=== PATIENT | male | born 1935 | race Caucasian/White ===

== ENCOUNTER 2017-08-07 05:54 | Day surgery (SDC) | payer MEDICARE, OTHER ==
[2017-08-07] MEDS ORDERED: PROPARACAINE 0.5% OPHTH DROPS 15 ML ONE ×2 (06:32→07:20)
[2017-08-07] MEDS ORDERED: CYCLOPENTOLATE 1% OPHTH DROPS 2 ML ONE (06:33)
[2017-08-07] MEDS ORDERED: KETOROLAC 0.45% OPHTH DROPS ONE (06:33)
[2017-08-07] MEDS ORDERED: PHENYLEPHRINE 2.5% OPHTH 2 ML DROPS ONE (06:33)
[2017-08-07] MEDS ORDERED: KETOROLAC 0.45% OPHTH DROPS LEFTEYE ONE (06:50)
[2017-08-07] MEDS ORDERED: PHENYLEPHRINE 2.5% OPHTH 2 ML DROPS LEFTEYE ONE (06:50)
[2017-08-07] MEDS ORDERED: PROPARACAINE 0.5% OPHTH DROPS 15 ML LEFTEYE ONE ×2 (06:50→07:36)
[2017-08-07] MEDS ORDERED: CYCLOPENTOLATE 1% OPHTH DROPS 2 ML LEFTEYE ONE (06:50)
[2017-08-07] MEDS ORDERED: LACTATED RINGERS 500 ML IV ONE (07:00)
[2017-08-07] MEDS ORDERED: BRIMONIDINE 0.1% OPHTH DROPS 5 ML ONE (07:19)
[2017-08-07] MEDS ORDERED: TIMOLOL 0.5% OPHTH DROPS ONE (07:20)
[2017-08-07] MEDS ORDERED: BRIMONIDINE 0.2% OPHTH DROPS 5 ML ONE (07:24)
[2017-08-07] MEDS ORDERED: EPINEPHrine 1 MG/ML AMP IVP ONE (07:34)
[2017-08-07] MEDS ORDERED: BRIMONIDINE 0.2% OPHTH DROPS 5 ML OPTH ONE (07:34)
[2017-08-07] MEDS ORDERED: CHONDR SULF/HYALURONATE SYRINGE IO ONE (07:35)
[2017-08-07] MEDS ORDERED: TIMOLOL 0.5% OPHTH DROPS OPTH ONE (07:35)
[2017-08-07] MEDS ORDERED: TRIAMCIN/MOXIFLOX/VANCO 1 ML VIAL IO ONE ×2 (07:36)
[2017-08-07] MEDS ORDERED: BSS/LIDOCAINE/EPINEPHRINE 1 ML SYRINGE IO ONE ×2 (07:36)
[2017-08-07] MEDS ORDERED: MIDAZOLAM 2 MG/2 ML VIAL IVP ONE (07:41)
[2017-08-07 07:58] VITALS: BP 159/73
--- NOTE | 2017-08-07 11:01 | OPERATIVE REPORT ---
DATE OF SERVICE: 08/07/2017 Physician: Reggie Handy MD PREOPERATIVE DIAGNOSIS: Visually significant cataract, left eye. Cataract surgery was performed on the right eye in 08/15/2011. POSTOPERATIVE DIAGNOSIS: Visually significant cataract, left eye. Cataract surgery was performed on the right eye in 08/15/2011. PROCEDURE: Phacoemulsification with posterior chamber intraocular lens implant , left eye. SURGEON: Reggie Handy MD ANESTHESIA: Monitored anesthesia care. COMPLICATIONS: None. OPERATIVE INDICATIONS: This is an 82-year-old man with progressive vision loss in the left eye due to 2+ nuclear sclerotic, 3+ cortical, and vacuolar cataract. Best corrected visual acuity was 20/30 with glare to 20/70 in the left eye. INDICATIONS FOR SURGERY: Overall decrease in vision, difficulty driving in low light or at night, difficulty driving at night because of headlights from other vehicles, and difficulty with glare or bright lights in any situation. He was consented at length concerning the risks and benefits of cataract surgery , after which he expressed desire to proceed with surgery. OPERATIVE PROCEDURE: The patient was taken to OR #3 and placed under monitored anesthesia care. A surgical timeout was conducted confirming correct patient, correct procedure, and correct surgical site. He was given topical anesthesia and prepped and draped in the usual sterile fashion. The eye was entered at the 6 and 3 o'clock positions. Intracameral Shugarcane was injected into the anterior chamber, followed by Viscoat. A continuous-tear curvilinear capsulorrhexis was performed. The nucleus was hydrodissected and phacoemulsified. The cortex was evacuated using automated infusion and aspiration (I&A). Provisc was injected in the capsular bag and a 23.0 diopter intraocular lens was inserted into the bag. Approximately 0.7 mL of a mixture of triamcinolone, moxifloxacin, vancomycin was injected subconjunctivally in the superior quadrant for infection and inflammation prophylaxis. I&A was used to evacuate the viscoelastic materials. The eye was inflated to physiologic pressure using balanced salt solution and found to be watertight. The patient was taken from the operating room in good condition and given postoperative instructions. TD: 08/07/2017 09:38 [facility]
== END 2017-08-07 05:55 | disposition home or self-care (01) ==
LOC: SDS 05:54
PROVIDERS: ATTEND Ophthalmology
PROC: 08RK3JZ Replacement of Left Lens with Synthetic Substitute, Percutaneous Approach (ICD-10-PCS; principal; 2017-08-07 07:30)
DX: H25.812 Combined forms of age-related cataract, left eye (principal); I10 Essential (primary) hypertension; I25.10 Atherosclerotic heart disease of native coronary artery without angina pectoris; Z95.1 Presence of aortocoronary bypass graft; Z79.82 Long term (current) use of aspirin; Z72.0 Tobacco use
CPT/HCPCS: 66984; A9270; J3490; V2632

== ENCOUNTER 2017-08-11 11:02 | Outpatient (CLI) | payer MEDICARE, OTHER | END 2017-08-11 11:03 | disposition home or self-care (01) | LOC: DI 11:02 | PROVIDERS: ATTEND Family Medicine | DX: I48.91 Unspecified atrial fibrillation (principal); I34.0 Nonrheumatic mitral (valve) insufficiency; I51.7 Cardiomegaly | CPT/HCPCS: 93306 ==

== ENCOUNTER 2018-03-05 10:28 | Outpatient (CLI) | payer MEDICARE, OTHER ==
[2018-03-05 13:18] LABS: BASOPHILS # (AUTO) 0.1 10^3/uL (0.0-0.1); BASOPHILS % (AUTO) 0.8 %; EOSINOPHILS # (AUTO) 0.3 10^3/uL (0.0-0.7); HGB - HEMOGLOBIN 13.5 g/dL (14.0-18.0); LYMPHOCYTES # (AUTO) 1.3 10^3/uL (1.5-3.5); LYMPHOCYTES % (AUTO) 20.2 %; MEAN CORPUSCULAR HEMOGLOBIN 35.6 pg (27.0-31.0); MEAN CORPUSCULAR HGB CONC 33.7 g/dL (32.0-36.0); MEAN CORPUSCULAR VOLUME 105.6 fL (80.0-94.0); MEAN PLATELET VOLUME 11.3 fL (7.4-11.4); MONOCYTES # (AUTO) 0.4 10^3/uL (0.0-1.0); MONOCYTES % (AUTO) 6.8 %; NEUTROPHILS # (AUTO) 4.4 10^3/uL (1.5-6.6); NEUTROPHILS % (AUTO) 67.2 %; PLT - PLATELET COUNT 110 10^3/uL (130-450); RED CELL DISTRIBUTION WIDTH 13.8 % (12.0-15.0); WHITE BLOOD COUNT 6.5 x10^3/uL (4.8-10.8)
[2018-03-05 14:12] LABS: ALBUMIN 3.5 g/dL (3.2-5.5); ALKALINE PHOSPHATASE 81 IU/L (42-121); ALT ALANINE AMINOTRANSFERASE 20 IU/L (10-60); AST ASPARTATE AMINOTRANSFERASE 31 IU/L (10-42); BILIRUBIN,TOTAL 1.5 mg/dL (0.2-1.0); BUN - BLOOD UREA NITROGEN 23 mg/dL (6-20); CALCIUM 9.1 mg/dL (8.5-10.3); CARBON DIOXIDE - CO2 29 mmol/L (21-32); CHLORIDE 103 mmol/L (101-111); CHOL/HDL RATIO 1.9 (<5.0); CHOLESTEROL 134 mg/dL; CREATININE 1.1 mg/dL (0.6-1.2); GFR - MDRD 64 (>89); GLUCOSE 104 mg/dL (70-100); HDL CHOLESTEROL 69 mg/dL; SODIUM 140 mmol/L (135-145); TOTAL PROTEIN 7.1 g/dL (6.7-8.2)
[2018-03-05 14:32] LABS: LDL CHOLESTEROL,DIRECT 46 mg/dL; LDLD/HDL RATIO 0.7 (<3.6)
== END 2018-03-05 10:29 | disposition home or self-care (01) ==
LOC: LAB.WCP 10:28
PROVIDERS: ATTEND Family Medicine
DX: E78.5 Hyperlipidemia, unspecified (principal); I10 Essential (primary) hypertension
CPT/HCPCS: 36415; 80053; 80061; 83721; 84443; 85025

== ENCOUNTER 2020-06-06 08:00 | Outpatient (CLI) | payer MEDICARE, OTHER ==
[2020-06-06 17:57] LABS: BASOPHILS % (AUTO) 0.8 %; EOSINOPHILS # (AUTO) 0.2 10^3/uL (0.0-0.7); EOSINOPHILS % (AUTO) 4.2 %; HGB - HEMOGLOBIN 13.4 g/dL (14.0-18.0); LYMPHOCYTES % (AUTO) 19.3 %; MEAN CORPUSCULAR HEMOGLOBIN 34.4 pg (27.0-31.0); MEAN CORPUSCULAR HGB CONC 31.4 g/dL (32.0-36.0); MEAN CORPUSCULAR VOLUME 109.5 fL (80.0-94.0); MEAN PLATELET VOLUME 14.3 fL (7.4-11.4); MONOCYTES # (AUTO) 0.5 10^3/uL (0.0-1.0); NEUTROPHILS # (AUTO) 3.5 10^3/uL (1.5-6.6); NEUTROPHILS % (AUTO) 66.5 %; PLT - PLATELET COUNT 127 10^3/uL (130-450); RED CELL DISTRIBUTION WIDTH 14.1 % (12.0-15.0); WHITE BLOOD COUNT 5.2 x10^3/uL (4.8-10.8)
[2020-06-06 18:07] LABS: ALBUMIN 3.9 g/dL (3.2-5.5); ALKALINE PHOSPHATASE 116 IU/L (42-121); ALT ALANINE AMINOTRANSFERASE 21 IU/L (10-60); AST ASPARTATE AMINOTRANSFERASE 25 IU/L (10-42); BILIRUBIN,TOTAL 1.2 mg/dL (0.2-1.0); BUN - BLOOD UREA NITROGEN 17 mg/dL (6-20); CALCIUM 9.4 mg/dL (8.5-10.3); CARBON DIOXIDE - CO2 30 mmol/L (21-32); CHLORIDE 103 mmol/L (101-111); CHOL/HDL RATIO 1.8 (<5.0); CHOLESTEROL 137 mg/dL; GLUCOSE 87 mg/dL (70-100); HDL CHOLESTEROL 76 mg/dL; LDL CHOLESTEROL,CALCULATED 52 mg/dL; LDL/HDL RATIO 0.7 (<3.6); SODIUM 140 mmol/L (135-145); TOTAL PROTEIN 7.7 g/dL (6.7-8.2); VLDL CHOLESTEROL 9 mg/dL
== END 2020-06-06 23:59 | disposition home or self-care (01) ==
LOC: LAB.WCP 08:00
PROVIDERS: ATTEND Family Medicine
DX: I25.10 Atherosclerotic heart disease of native coronary artery without angina pectoris (principal); E78.5 Hyperlipidemia, unspecified; E03.9 Hypothyroidism, unspecified
CPT/HCPCS: 36415; 80053; 80061; 83721; 84443; 85025

== ENCOUNTER 2020-12-29 13:54 | Outpatient (CLI) | payer MEDICARE, OTHER ==
[2020-12-29 17:50] LABS: BASOPHILS % (AUTO) 0.6 %; EOSINOPHILS # (AUTO) 0.2 10^3/uL (0.0-0.7); EOSINOPHILS % (AUTO) 3.5 %; HCT - HEMATOCRIT 42.5 % (42.0-52.0); HGB - HEMOGLOBIN 13.9 g/dL (14.0-18.0); LYMPHOCYTES # (AUTO) 0.7 10^3/uL (1.5-3.5); LYMPHOCYTES % (AUTO) 14.2 %; MEAN CORPUSCULAR HEMOGLOBIN 35.8 pg (27.0-31.0); MEAN CORPUSCULAR HGB CONC 32.7 g/dL (32.0-36.0); MEAN CORPUSCULAR VOLUME 109.5 fL (80.0-94.0); MONOCYTES # (AUTO) 0.5 10^3/uL (0.0-1.0); MONOCYTES % (AUTO) 9.7 %; NEUTROPHILS # (AUTO) 3.5 10^3/uL (1.5-6.6); NEUTROPHILS % (AUTO) 71.8 %; PLT - PLATELET COUNT 117 10^3/uL (130-450); RED BLOOD COUNT 3.88 10^6/uL (4.70-6.10); RED CELL DISTRIBUTION WIDTH 14.4 % (12.0-15.0); WHITE BLOOD COUNT 4.9 x10^3/uL (4.8-10.8)
[2020-12-29 18:04] LABS: ALKALINE PHOSPHATASE 120 IU/L (42-121); ALT ALANINE AMINOTRANSFERASE 23 IU/L (10-60); AST ASPARTATE AMINOTRANSFERASE 35 IU/L (10-42); BILIRUBIN,TOTAL 1.5 mg/dL (0.2-1.0); BUN - BLOOD UREA NITROGEN 17 mg/dL (6-20); CALCIUM 9.3 mg/dL (8.5-10.3); CARBON DIOXIDE - CO2 32 mmol/L (21-32); CHLORIDE 96 mmol/L (101-111); CHOL/HDL RATIO 1.7 (<5.0); CHOLESTEROL 151 mg/dL; CREATININE 1.1 mg/dL (0.6-1.2); GFR - MDRD 64 (>89); GLUCOSE 103 mg/dL (70-100); HDL CHOLESTEROL 89 mg/dL; LDL CHOLESTEROL,CALCULATED 50 mg/dL; LDL/HDL RATIO 0.6 (<3.6); POTASSIUM 4.4 mmol/L (3.5-5.0); SODIUM 139 mmol/L (135-145); TOTAL PROTEIN 7.9 g/dL (6.7-8.2); TRIGLYCERIDES 61 mg/dL; VLDL CHOLESTEROL 12 mg/dL
== END 2020-12-29 13:55 | disposition home or self-care (01) ==
LOC: LAB.N 13:54
PROVIDERS: ATTEND Family Medicine
DX: J44.9 Chronic obstructive pulmonary disease, unspecified (principal); I25.10 Atherosclerotic heart disease of native coronary artery without angina pectoris
CPT/HCPCS: 36415; 80053; 80061; 83721; 85025

== ENCOUNTER 2020-12-29 13:58 | Outpatient (CLI) | payer MEDICARE, OTHER ==
--- NOTE | 2020-12-29 14:48 | XRAY Report ---
PROCEDURE: Chest 2 View X-Ray INDICATIONS: COPD TECHNIQUE: 2 view(s) of the chest. COMPARISON: None. FINDINGS: Surgical changes and devices: Median sternotomy wires and surgical clips are seen. Lungs and pleura: There is hyperinflation. Small bilateral pleural effusion are seen. Mild pulmonary vascular congestion is noted. No gross pneumothorax. No definite focal infiltrate. Mediastinum: Mediastinal contours are normal. Heart size is enlarged. Bones and chest wall: No suspicious bony abnormalities. Soft tissues appear unremarkable. IMPRESSION: Mild cardiomegaly and pulmonary vascular congestion. Small bilateral pleural effusion. N o gross pneumothorax. COPD. Reviewed by: Carl Yang MD on 12/29/2020 2:46 PM PDT Approved by: Carl Yang MD on 12/29/2020 2:46 PM PDT Station ID: [id number]
== END 2020-12-29 13:59 | disposition home or self-care (01) ==
LOC: DI.N 13:58
PROVIDERS: ATTEND Family Medicine
DX: I51.7 Cardiomegaly (principal); R09.89 Other specified symptoms and signs involving the circulatory and respiratory systems; J90 Pleural effusion, not elsewhere classified; J44.9 Chronic obstructive pulmonary disease, unspecified; I25.10 Atherosclerotic heart disease of native coronary artery without angina pectoris
CPT/HCPCS: 36415; 80053; 80061; 83721; 85025

== ENCOUNTER 2021-01-06 13:57 | Outpatient (CLI) | payer MEDICARE, OTHER | END 2021-01-06 13:58 | disposition home or self-care (01) | LOC: RT 13:57 | PROVIDERS: ATTEND Family Medicine | DX: J44.9 Chronic obstructive pulmonary disease, unspecified (principal) | CPT/HCPCS: 94060 ==

== ENCOUNTER 2021-02-19 08:00 | Outpatient (CLI) | payer MEDICARE, OTHER ==
[2021-02-19 18:56] LABS: CALCIUM 9.4 mg/dL (8.5-10.3); POTASSIUM 4.8 mmol/L (3.5-5.0)
== END 2021-02-19 23:59 | disposition home or self-care (01) ==
LOC: LAB.WCP 08:00
PROVIDERS: ATTEND Family Medicine
DX: I25.10 Atherosclerotic heart disease of native coronary artery without angina pectoris (principal)
CPT/HCPCS: 36415; 80048

== ENCOUNTER 2022-06-25 14:53 | Outpatient (CLI) | payer MEDICARE, OTHER | END 2022-06-25 14:54 | disposition home or self-care (01) | LOC: DI 14:53 | PROVIDERS: ATTEND Nurse Practitioner | DX: I51.7 Cardiomegaly (principal); I87.8 Other specified disorders of veins; I48.91 Unspecified atrial fibrillation | CPT/HCPCS: 93306 ==

== ENCOUNTER 2022-08-07 10:02 | Outpatient (CLI) | payer MEDICARE, OTHER ==
[2022-08-07 13:07] LABS: CALCIUM 9.4 mg/dL (8.5-10.3); CREATININE 1.4 mg/dL (0.6-1.2); POTASSIUM 4.3 mmol/L (3.5-5.0)
== END 2022-08-07 10:03 | disposition home or self-care (01) ==
LOC: LAB.N 10:02
PROVIDERS: ATTEND Internal Medicine Cardiovascular Disease
DX: I48.21 Permanent atrial fibrillation (principal); I10 Essential (primary) hypertension; I25.810 Atherosclerosis of coronary artery bypass graft(s) without angina pectoris; I27.20 Pulmonary hypertension, unspecified
CPT/HCPCS: 36415; 80048

== ENCOUNTER 2023-06-12 12:32 | Outpatient (CLI) | payer MEDICARE, OTHER ==
[2023-06-12 17:50] LABS: BASOPHILS % (AUTO) 0.6 %; EOSINOPHILS # (AUTO) 0.2 10^3/uL (0.0-0.7); EOSINOPHILS % (AUTO) 3.4 %; HCT - HEMATOCRIT 39.4 % (42.0-52.0); HGB - HEMOGLOBIN 12.1 g/dL (14.0-18.0); LYMPHOCYTES # (AUTO) 0.9 10^3/uL (1.5-3.5); LYMPHOCYTES % (AUTO) 13.8 %; MEAN CORPUSCULAR HEMOGLOBIN 33.2 pg (27.0-31.0); MEAN CORPUSCULAR HGB CONC 30.7 g/dL (32.0-36.0); MEAN CORPUSCULAR VOLUME 107.9 fL (80.0-94.0); MEAN PLATELET VOLUME 13.9 fL (7.4-11.4); MONOCYTES # (AUTO) 0.5 10^3/uL (0.0-1.0); NEUTROPHILS % (AUTO) 74.6 %; PLT - PLATELET COUNT 138 10^3/uL (130-450); RED BLOOD COUNT 3.65 10^6/uL (4.70-6.10); WHITE BLOOD COUNT 6.8 x10^3/uL (4.8-10.8)
[2023-06-12 18:26] LABS: ALBUMIN 4.2 g/dL (3.2-5.5); ALBUMIN/GLOBULIN RATIO 1.3 (1.0-2.2); BILIRUBIN,TOTAL 0.7 mg/dL (0.2-1.0); CALCIUM 9.7 mg/dL (8.5-10.3); CREATININE 1.3 mg/dL (0.6-1.3); TOTAL PROTEIN 7.5 g/dL (6.4-8.9)
[2023-06-12 18:32] LABS: THYROID STIMULATING HORMONE 4.52 uIU/mL (0.34-5.60)
== END 2023-06-12 12:33 | disposition home or self-care (01) ==
LOC: LAB.N 12:32
PROVIDERS: ATTEND Nurse Practitioner
DX: I10 Essential (primary) hypertension (principal); R25.1 Tremor, unspecified; E03.9 Hypothyroidism, unspecified
CPT/HCPCS: 36415; 80053; 82607; 84439; 84443; 85025

== ENCOUNTER 2023-08-19 09:09 | Outpatient (CLI) | payer MEDICARE, OTHER ==
[2023-08-19 11:54] LABS: BASOPHILS % (AUTO) 0.4 %; EOSINOPHILS # (AUTO) 0.2 10^3/uL (0.0-0.7); EOSINOPHILS % (AUTO) 2.6 %; HCT - HEMATOCRIT 37.4 % (42.0-52.0); LYMPHOCYTES % (AUTO) 11.8 %; MEAN CORPUSCULAR HEMOGLOBIN 33.4 pg (27.0-31.0); MEAN CORPUSCULAR HGB CONC 32.1 g/dL (32.0-36.0); MEAN CORPUSCULAR VOLUME 104.2 fL (80.0-94.0); MEAN PLATELET VOLUME 12.2 fL (7.4-11.4); MONOCYTES # (AUTO) 0.7 10^3/uL (0.0-1.0); MONOCYTES % (AUTO) 8.4 %; NEUTROPHILS # (AUTO) 6.1 10^3/uL (1.5-6.6); NEUTROPHILS % (AUTO) 76.3 %; PLT - PLATELET COUNT 160 10^3/uL (130-450); RED BLOOD COUNT 3.59 10^6/uL (4.70-6.10)
[2023-08-19 12:32] LABS: ALBUMIN/GLOBULIN RATIO 1.3 (1.0-2.2); BILIRUBIN,TOTAL 0.8 mg/dL (0.2-1.0); CALCIUM 9.8 mg/dL (8.5-10.3); CREATININE 1.2 mg/dL (0.6-1.3); POTASSIUM 4.7 mmol/L (3.5-4.5); TOTAL PROTEIN 7.2 g/dL (6.4-8.9)
== END 2023-08-19 09:10 | disposition home or self-care (01) ==
LOC: LAB.N 09:09
PROVIDERS: ATTEND Nurse Practitioner
DX: D64.9 Anemia, unspecified (principal)
CPT/HCPCS: 36415; 80053; 85025

== ENCOUNTER 2023-08-27 13:37 | Outpatient (CLI) | payer MEDICARE, OTHER ==
[2023-08-27] MEDS ORDERED: DIATRIZOATE MEGLU/DIATRIZO SOD 30 ML BOTTLE PO ONE ×2 (13:43→15:23)
[2023-08-27] MEDS ORDERED: iohexoL-300 100 ML VIAL ONE (13:43)
[2023-08-27] MEDS ORDERED: iohexoL-300 100 ML VIAL IVP ONE (15:23)
--- NOTE | 2023-08-27 16:19 | CT Report ---
PROCEDURE: Chest W INDICATIONS: ANEMIA, HIST OF SMOKING CONTRAST: Omni 300 100ml TECHNIQUE: After the administration of intravenous contrast, a CT scan of the chest was performed. Images were recorded and evaluated at appropriate window settings. Reformats: axial MIP of the chest, coronal and sagittal. For radiation dose reduction, the following was used: automated exposure control, adjustme nt of mA and/or kV according to patient size. COMPARISON: None. FINDINGS: Image quality: Diagnostic Lungs and pleura:Small left pleural effusion and trace right pleural effusion. There are small centri lobular nodules at the lung bases. Small nodular opacities are also seen, for example in the peripher y of the left upper lobe measuring 1.1 cm. Superimposed atelectasis is present. Mediastinum, heart, and esophagus: Possible small hiatal hernia. There is cardiomegaly. Postsurgical changes of CABG. There are prominent and borderline enlarged lymph nodes, for example precarinal node measures 1.4 cm. A small fatty hilum is seen. Chest wall and thyroid: No actionable thyroid nodule identified. Chest wall is unremarkable. Upper abdomen: Separately dictated Bones: Degenerative changes, no acute or suspicious osseous finding. There are sternotomy wires. IMPRESSION: Small left and trace right pleural effusion. Centrilobular lung base nodules, and small nodular opaci ties, index lesion above in the left upper lobe, might be infectious or inflammatory. Mildly enlarged mediastinal lymph nodes are also present. Consider future imaging surveillance to assess for resolut ion. Abdominal pelvic findings are separately dictated Reviewed by: Raghavendra Pardo MD on 08/27/2023 4:18 PM PST Approved by: Raghavendra Pardo MD on 08/27/2023 4:18 PM PST Station ID: [id number]
--- NOTE | 2023-08-27 16:25 | CT Report ---
PROCEDURE: Abdomen/Pelvis W INDICATIONS: ANEMIA, HIST OF SMOKING CONTRAST: Omni 300 100ml TECHNIQUE: After the administration of intravenous contrast, a CT scan of the abdomen and pelvis was performed. Images were recorded and evaluated at appropriate window settings. Reformats: coronal and sagittal. F or radiation dose reduction, the following was used: automated exposure control, adjustment of mA and /or kV according to patient size. COMPARISON: None FINDINGS: Image quality: Diagnostic Lower chest: Chest findings are separately dictated. Liver: No focal suspicious liver lesion. Areas of heterogeneity may represent perfusional anomalies, for example at the dome series 2 image 15. Attention on follow-up if there is a history of known justyn gnancy. Gallbladder and biliary system: Unremarkable, nondilated Pancreas: Moderately atrophic. No ductal dilation Spleen: Nonenlarged Adrenals: No discrete nodules Kidneys: No solid mass. No hydronephrosis. Left renal cyst is present. No obstructing stone. Vessels and lymph nodes: The main portal vein is patent. Excavated plaque with small nonocclusive non calcified plaque in the infrarenal abdominal aorta, with focal ectasia measuring 2.5 cm. Overall athe rosclerotic disease is moderate. No pathologic lymph nodes identified by size criteria. Bowel and peritoneum: No evidence of small bowel obstruction. Small rectal stool ball. Colonic divert iculosis. There is wall thickening of the sigmoid colon. Numerous diverticula are seen. Loss of haust rations in the descending colon may be due to prior inflammation. No pathologic ascites. No drainable abscess. Body wall: Unremarkable Pelvis: Bladder is unremarkable. Heterogeneous prostate is not well evaluated on this study. Bones: Degenerative changes, no acute or suspicious findings. IMPRESSION: No acute abdominopelvic abnormality. Chest findings are separately dictated. Mild wall thickening of the sigmoid colon with numerous diverticula, probably chronic diverticular di sease. However in the setting of anemia, recommend correlation with colonoscopy. Other findings as above. Reviewed by: Raghavendra Pardo MD on 08/27/2023 4:23 PM PST Approved by: Raghavendra Pardo MD on 08/27/2023 4:23 PM PST Station ID: [id number]
== END 2023-08-27 13:38 | disposition home or self-care (01) ==
LOC: DI 13:37
PROVIDERS: ATTEND Surgery
DX: D64.9 Anemia, unspecified (principal); J90 Pleural effusion, not elsewhere classified; R91.8 Other nonspecific abnormal finding of lung field; R59.0 Localized enlarged lymph nodes; K57.30 Diverticulosis of large intestine without perforation or abscess without bleeding
CPT/HCPCS: 71260; 74177; Q9963; Q9967

== ENCOUNTER 2023-08-30 12:36 | Outpatient (CLI) | payer MEDICARE, OTHER | END 2023-08-30 12:37 | disposition home or self-care (01) | LOC: DI 12:36 | PROVIDERS: ATTEND Nurse Practitioner | DX: Z53.9 Procedure and treatment not carried out, unspecified reason (principal) ==

== ENCOUNTER 2023-09-08 13:38 | Outpatient (CLI) | payer MEDICARE, OTHER ==
--- NOTE | 2023-09-08 17:44 | MRI Report ---
PROCEDURE: Cervical Spine WO INDICATIONS: PAIN TECHNIQUE: Noncontrast sagittal T1 spin echo and T2 fast spin echo, sagittal STIR, foraminal oblique sagittal T2 fast spin echo, and axial gradient echo or T2 fast spin echo through the cervical spine. COMPARISON: None. FINDINGS: Image quality: Diagnostic, with note made of motion artifact. Alignment and Curvature: There is overall straightening of the normal cervical lordosis. No signif icant AP alignment abnormality can be seen. Bone Marrow: Marrow demonstrates normal overall signal. Spinal Cord: Visualized spinal cord has normal size and signal. No cerebellar tonsillar herniation. Paraspinous Soft Tissues: No paravertebral masses. Prevertebral soft tissues are normal in thicknes s. C2-C3: Mild loss of disc height and disc signal are seen. Mild disc osteophyte complex is seen. Mild facet hypertrophy is seen. Moderate bilateral neural foraminal narrowing is seen. No centra l canal narrowing is seen. C3-C4: Moderate loss of disc height and signal are seen. Moderate disc osteophyte complex is seen. There is mild right-sided and moderate left-sided facet hypertrophy. Moderate to severe bilateral ne uroforaminal narrowing can be seen. Moderate central canal narrowing is seen. C4-C5: Mild loss of disc height and disc signal are seen. Moderate disc osteophyte complex is seen. There is at least moderate right-sided and aacl-pt-howwpkan left-sided facet hypertrophy. There is moderate to severe right-sided and moderate left-sided neuroforaminal narrowing. Mild central canal narrowing is seen, with mild mass effect upon the ventral spinal cord. C5-C6: At least moderate loss of disc height and disc signal can be seen. Moderate disc osteophyte c omplex is seen at this level, with associated uncovertebral hypertrophy. Moderate facet hypertrophy c an be seen, right worse than left. There is moderate to severe bilateral neuroforaminal narrowing see n. Moderate central canal narrowing is seen. Associated mass effect is seen upon the ventral spin al cord. C6-C7: At least moderate loss of disc height and disc signal can be seen. Moderate disc osteophyte c omplex is seen, with a mild central disc osteophyte protrusion. Mild to moderate facet hypertrophy is seen. Moderate to severe bilateral neuroforaminal narrowing can be seen at this level. Mild to moder ate central canal narrowing is seen. C7-T1: The disc height is well-preserved. There is loss of disc signal seen. Moderate disc osteophy te complex is seen. Mild to moderate facet hypertrophy can be seen. There is at least moderate right- sided and no left-sided neuroforaminal narrowing. No central canal narrowing is seen. IMPRESSION: Multiple levels of significant cervical spine degenerative change can be seen, with multiple sites of moderate to severe neuroforaminal narrowing. Reviewed by: Osvaldo Zurita MD on 09/08/2023 4:43 PM AKST Approved by: Osvaldo Zurita MD on 09/08/2023 4:43 PM [place] Station ID: [id number]
== END 2023-09-08 13:39 | disposition home or self-care (01) ==
LOC: DI 13:38
PROVIDERS: ATTEND Nurse Practitioner
DX: M47.22 Other spondylosis with radiculopathy, cervical region (principal); M48.02 Spinal stenosis, cervical region; M47.23 Other spondylosis with radiculopathy, cervicothoracic region; M48.03 Spinal stenosis, cervicothoracic region

== ENCOUNTER 2023-09-20 13:20 | Outpatient (CLI) | payer MEDICARE, OTHER | END 2023-09-20 13:21 | disposition critical access hospital (66) | LOC: EMS 13:20 | DX: S06.9X1A Unspecified intracranial injury with loss of consciousness of 30 minutes or less, initial encounter (principal); S01.03XA Puncture wound without foreign body of scalp, initial encounter; W01.198A Fall on same level from slipping, tripping and stumbling with subsequent striking against other object, initial encounter; Y92.015 Private garage of single-family (private) house as the place of occurrence of the external cause; R51.9 Headache, unspecified | CPT/HCPCS: A0425; A0429 ==

== ENCOUNTER 2023-09-20 13:38 | Emergency (ER) | payer MEDICARE, OTHER ==
--- NOTE | 2023-09-20 13:45 | ED Physician Documentation ---
PD HPI HEAD INJURY - Stated complaint Stated Complaint: GLF - History obtained from History obtained from: Patient, EMS - Additional information Additional information: 88-year-old gentleman on a DOAC for A-fib had an apparent mechanical fall hitting the back of his head with a small puncture wound there and positive loss of consciousness. He is normal now and states that is his only injury and has only very mild posterior headache, "a 1." PD PAST MEDICAL HISTORY - Past Medical History Cardiovascular: Hypertension, High cholesterol, Atrial fibrillation Respiratory: COPD Endocrine/Autoimmune: None GI: None : Benign prostate hypertrophy HEENT: Chronic vision loss Psych: None Musculoskeletal: None Derm: None - Past Surgical History General: Appendectomy Cardiovascular: CABG - Present Medications Home Medications: Ambulatory Orders Medication Instructions Recorded Confirmed Atorvastatin Calcium 40 mg PO DAILY 08/06/17 09/20/23 Isosorbide Mononitrate 10 mg PO BID 08/06/17 09/20/23 atenoloL [Atenolol] 25 mg PO DAILY 08/06/17 09/20/23 Apixaban [Eliquis] 2.5 mg PO BID 09/20/23 09/20/23 Budesonide/Formoterol Fumarate 09/20/23 [Symbicort 160-4.5 Mcg Inhaler] Chlorthalidone 25 mg PO DAILY 09/20/23 09/20/23 Fluticasone/Umeclidin/Vilanter 200 mcg PO DAILY 09/20/23 09/20/23 [Trelegy Ellipta 200-62.5-25] Tamsulosin [Flomax] 0.4 mg PO HS 09/20/23 09/20/23 - Allergies Allergies/Adverse Reactions: Allergies Allergy/AdvReac Type Severity Reaction Status Date / Time cephalexin [From Keflex] AdvReac Unknown Verified 09/20/23 13:50 - Social History Does the pt smoke?: No Smoking Status: Never smoker PD ED PE NORMAL - Vitals Vital signs reviewed: Yes - General General: Alert and oriented X 3, No acute distress - HEENT HEENT: PERRL, EOMI, Other (Puncture wound right lower occiput, hemostatic on my evaluation) - Neck Neck: No bony TTP - Cardiac Cardiac: Other (Irregularly irregular) - Respiratory Respiratory: No respiratory distress - Abdomen Abdomen: Non tender - Neuro Neuro: Alert and oriented X 3, program trainer 2-12 intact, No motor deficit, No sensory deficit, Normal speech Eye Opening: Spontaneous Motor: Obeys Commands Verbal: Oriented GCS Score: 15 Results - Vitals Vitals: Vital Signs - 24 hr 09/20/23 09/20/23 13:44 14:39 Temperature 36.2 C L Heart Rate 77 70 Respiratory 18 16 Rate Blood Pressure 96/56 L 112/60 O2 Saturation 97 98 Oxygen O2 Source Room air - Rads (name of study) CT head and cervical spine Relevant Findings:: Final report received, EMP independent interpretation of test Procedures - Laceration (location) R occiput Length in cm: 1 Wound type: Linear, Into subcut fat Wound preparation: Irrigated copiously NS Skin layer closure: Dermabond Other: Patient tolerated well, No complications, Neurovascular intact Departure - Departure Disposition: 01 Home, Self Care Clinical Impression: Anticoagulant long-term use Concussion Qualifiers: Encounter type: initial encounter Loss of consciousness presence/duration: with LOC of 30 min or less Qualified Code(s): S06.0X1A - Concussion with loss of consciousness of 30 minutes or less, initial encounter Occipital scalp laceration Qualifiers: Encounter type: initial encounter Qualified Code(s): S01.01XA - Laceration without foreign body of scalp, initial encounter Condition: Stable Instructions: ED Head Injury Closed, ED Laceration Facial Skin Glue Forms: PCP List Discharge Date/Time: 09/20/23 14:42
--- NOTE | 2023-09-20 14:21 | CT Report ---
PROCEDURE: Head WO INDICATIONS: head inj, doac TECHNIQUE: Noncontrast 4.5 mm thick angled axial sections acquired from the foramen magnum to the vertex. For r adiation dose reduction, the following was used: automated exposure control, adjustment of mA and/or kV according to patient size. COMPARISON: Correlation is made with the accompanying imaging. FINDINGS: Image quality: Excellent. CSF spaces: Basal cisterns are patent. No extra-axial fluid collections. Ventricles are normal in size and shape. Brain: No midline shift. No intracranial masses or hemorrhage. Zavala-white matter interface is norm al. Age-appropriate brain parenchymal volume loss and chronic small vessel ischemic change can be se en. Skull and face: There is a scalp laceration seen posteriorly and on the right, with scalp hemorrhage and soft tissue gas. No associated calvarial fracture can be seen. Calvarium and visualized facial b ones are intact, without suspicious lesions. Sinuses: Visualized sinuses and mastoids are clear. IMPRESSION: Right posterior scalp laceration, with scalp hemorrhage and soft tissue gas. Negative for a displaced calvarial fracture. No intracranial hemorrhage is seen. No acute intracranial pathology. Reviewed by: Osvaldo Zurita MD on 09/20/2023 1:[address] [facility] Approved by: Osvaldo Zurita MD on 09/20/2023 1:[address] [facility] Station ID: [id number]
--- NOTE | 2023-09-20 14:23 | CT Report ---
PROCEDURE: Cervical Spine WO INDICATIONS: head inj, doac TECHNIQUE: Noncontrast 3 mm thick sections acquired from the skull base to the T4 level. Sagittal and coronal r eformats were then constructed. For radiation dose reduction, the following was used: automated exp osure control, adjustment of mA and/or kV according to patient size. COMPARISON: Correlation is made with the accompanying imaging. FINDINGS: Image quality: Excellent. Bones: No fractures or dislocations. Visualized superior ribs are intact. Focal degenerative change can be seen involving the C1-C2 interface anteriorly. Calcified soft tissue pannus can be seen posterior to the dens. At least moderate disc space narrowing can be seen at C3-C4 and C4-C5. Bridging anterior osteophytes can be seen at C4-C5. Moderate to severe disc space narrowing can be seen at C5-C6 and C6-C7. Multipl e levels of prominent facet hypertrophy can be seen, with levels of fusion. Soft tissues: Prevertebral soft tissues are normal in thickness. No paravertebral hematomas. No ap ical pneumothoraces. Right-sided neck soft tissue postoperative change can be seen. Advanced atheros clerotic calcification is seen. IMPRESSION: Negative for acute fracture. Prominent underlying cervical spine degenerative changes are seen. Additional findings: Right-sided neck postoperative change Advanced vascular calcification Reviewed by: Osvaldo Zurita MD on 09/20/2023 1:22 PM [place] Approved by: Osvaldo Zurita MD on 09/20/2023 1:[address] [facility] Station ID: [id number]
[2023-09-20] MEDS: TETANUS/DIPHTHERIA/PERTUSSIS 0.5 ML SYRINGE IM ONE (14:27)
[2023-09-20 14:46] VITALS: BP 112/60; O2SAT 98
== END 2023-09-20 14:42 | disposition home or self-care (01) ==
LOC: EDUNIT# → ED 13:38
DX: S06.0X1A Concussion with loss of consciousness of 30 minutes or less, initial encounter (principal); S01.03XA Puncture wound without foreign body of scalp, initial encounter; W18.39XA Other fall on same level, initial encounter; Z23 Encounter for immunization; I10 Essential (primary) hypertension; E78.00 Pure hypercholesterolemia, unspecified; I48.91 Unspecified atrial fibrillation; J44.9 Chronic obstructive pulmonary disease, unspecified; N40.0 Benign prostatic hyperplasia without lower urinary tract symptoms; I25.10 Atherosclerotic heart disease of native coronary artery without angina pectoris; Z95.1 Presence of aortocoronary bypass graft; Z79.01 Long term (current) use of anticoagulants; Z79.899 Other long term (current) drug therapy
CPT/HCPCS: 12001; 90471; 99282; 99284

== ENCOUNTER 2023-10-14 12:00 | Outpatient (CLI) | payer MEDICARE, OTHER | END 2023-10-14 12:01 | disposition critical access hospital (66) | LOC: EMS 12:00 | DX: R53.1 Weakness (principal); R51.9 Headache, unspecified; R22.0 Localized swelling, mass and lump, head; R20.2 Paresthesia of skin; R20.0 Anesthesia of skin; R26.9 Unspecified abnormalities of gait and mobility; W18.30XA Fall on same level, unspecified, initial encounter; Y92.019 Unspecified place in single-family (private) house as the place of occurrence of the external cause; Z79.01 Long term (current) use of anticoagulants | CPT/HCPCS: A0425; A0427 ==

== ENCOUNTER 2023-10-14 12:19 | Emergency (ER) | payer MEDICARE, OTHER ==
[2023-10-14 12:48] LABS: BASOPHILS % (AUTO) 0.4 %; EOSINOPHILS # (AUTO) 0.1 10^3/uL (0.0-0.7); EOSINOPHILS % (AUTO) 1.4 %; HCT - HEMATOCRIT 31.7 % (42.0-52.0); HGB - HEMOGLOBIN 10.4 g/dL (14.0-18.0); LYMPHOCYTES # (AUTO) 0.7 10^3/uL (1.5-3.5); LYMPHOCYTES % (AUTO) 7.1 %; MEAN CORPUSCULAR HEMOGLOBIN 34.7 pg (27.0-31.0); MEAN CORPUSCULAR HGB CONC 32.8 g/dL (32.0-36.0); MEAN CORPUSCULAR VOLUME 105.7 fL (80.0-94.0); MEAN PLATELET VOLUME 11.1 fL (7.4-11.4); MONOCYTES # (AUTO) 0.8 10^3/uL (0.0-1.0); MONOCYTES % (AUTO) 8.6 %; NEUTROPHILS # (AUTO) 7.6 10^3/uL (1.5-6.6); NEUTROPHILS % (AUTO) 81.6 %; PLT - PLATELET COUNT 145 10^3/uL (130-450); RED CELL DISTRIBUTION WIDTH 14.8 % (12.0-15.0); WHITE BLOOD COUNT 9.3 x10^3/uL (4.8-10.8)
[2023-10-14 12:57] LABS: ALBUMIN 3.5 g/dL (3.2-5.5); ALBUMIN/GLOBULIN RATIO 1.1 (1.0-2.2); BILIRUBIN,TOTAL 0.8 mg/dL (0.2-1.0); CALCIUM 9.3 mg/dL (8.5-10.3); CREATININE 1.2 mg/dL (0.6-1.3); MAGNESIUM 1.5 mg/dL (1.7-2.3); POTASSIUM 3.4 mmol/L (3.5-4.5); TOTAL PROTEIN 6.6 g/dL (6.4-8.9)
--- NOTE | 2023-10-14 13:12 | ED Physician Documentation ---
PD HPI HEAD INJURY - Stated complaint Stated Complaint: FALL - Chief complaint Chief Complaint: Trauma Hd/Nk - Additional information Additional information: 88-year-old male with chronic A-fib anticoagulated on Eliquis with history of CHF, COPD, dyspnea, weakness, anemia presents emergency department for ground- level fall. Patient reported he was feeling weak started to lose his balance his attempted to catch him but he ultimately ended up falling and hitting the left portion of his forehead. He had no loss of consciousness he denies any neck pain he said that he was here recently for another ground-level fall hitting the back of his head. 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 Denies any unilateral weakness no slurred speech.He does have an old wound to the posterior portion of his scalp from another recent ground- level fall. PD PAST MEDICAL HISTORY - Past Medical History Cardiovascular: Hypertension, High cholesterol, Atrial fibrillation Respiratory: COPD Endocrine/Autoimmune: None GI: None : Benign prostate hypertrophy HEENT: Chronic vision loss Psych: None Musculoskeletal: None Derm: None - Past Surgical History Past Surgical History: Yes General: Appendectomy Cardiovascular: CABG - Present Medications Home Medications: Ambulatory Orders Medication Instructions Recorded Confirmed Atorvastatin Calcium 40 mg PO DAILY 08/06/17 10/14/23 Isosorbide Mononitrate 10 mg PO BID 08/06/17 10/14/23 atenoloL [Atenolol] 25 mg PO DAILY 08/06/17 10/14/23 Apixaban [Eliquis] 2.5 mg PO BID 09/20/23 10/14/23 Chlorthalidone 25 mg PO DAILY 09/20/23 10/14/23 Fluticasone/Umeclidin/Vilanter 200 mcg PO DAILY 09/20/23 10/14/23 [Trelegy Ellipta 200-62.5-25] Tamsulosin [Flomax] 0.4 mg PO HS 09/20/23 10/14/23 Gabapentin [Neurontin] 100 mg PO TID #30 cap 10/14/23 - Allergies Allergies/Adverse Reactions: Allergies Allergy/AdvReac Type Severity Reaction Status Date / Time cephalexin [From Keflex] AdvReac Unknown Verified 10/14/23 12:27 - Social History Does the pt smoke?: No Smoking Status: Never smoker PD ED PE NORMAL - Vitals Vital signs reviewed: Yes - General General: Alert and oriented X 3, Well developed/nourished - HEENT HEENT: PERRL, EOMI, Pharynx benign, Other (large forhead hematoma) - Neck Neck: No bony TTP, C-Spine cleared by NEXUS criteria - Cardiac Cardiac: RRR, No gallop, Strong equal pulses - Respiratory Respiratory: No respiratory distress, Clear bilaterally - Abdomen Abdomen: Normal bowel sounds, Soft, Non tender, No organomegaly - Back Back: No CVA TTP, No spinal TTP - Extremities Extremities: No deformity, No tenderness to palpate, Normal ROM s pain, No edema - Neuro Neuro: Alert and oriented X 3, 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, No motor deficit, Normal speech Eye Opening: Spontaneous Motor: Obeys Commands Verbal: Oriented GCS Score: 15 Results - Vitals Vitals: Vital Signs - 24 hr 10/14/23 10/14/23 10/14/23 12:22 13:04 13:30 Temperature 36.5 C Heart Rate 80 69 63 Respiratory 16 17 21 Rate Blood Pressure 102/65 104/61 104/61 O2 Saturation 96 96 97 10/14/23 10/14/23 10/14/23 14:00 14:30 15:00 Temperature Heart Rate 60 66 70 Respiratory 12 21 23 Rate Blood Pressure O2 Saturation 97 97 95 10/14/23 15:30 Temperature Heart Rate 65 Respiratory 20 Rate Blood Pressure 113/73 O2 Saturation 96 Oxygen O2 Source Room air - EKG (time done) 1304 EKG releavant findings:: EKG personally interpreted by author of this note. Relevant findings are: Rate: Rate (enter#) (62) Rhythm: Atrial fibrillation [place]: LAD Intervals: Wide QRS, RBBB Ischemia: Normal ST segments Compare to prior EKG: Unchanged from prior EKG Computer interpretation: Agree with computer - Labs Labs: Laboratory Tests 10/14/23 10/14/23 12:29 12:29 WBC 9.3 RBC 3.00 L Hgb 10.4 L Hct 31.7 L MCV 105.7 H MCH 34.7 H MCHC 32.8 RDW 14.8 Plt Count 145 MPV 11.1 Neut # (Auto) 7.6 H Lymph # (Auto) 0.7 L Bond # (Auto) 0.8 Eos # (Auto) 0.1 Baso # (Auto) 0.0 Absolute Nucleated RBC 0.00 Nucleated RBC % 0.0 Sodium 133 L Potassium 3.4 L Chloride 100 L Carbon Dioxide 26 Anion Gap 7.0 BUN 29 H Creatinine 1.2 Estimated GFR (MDRD) 57 L Glucose 106 H Calcium 9.3 Magnesium 1.5 L Total Bilirubin 0.8 AST 25 ALT 23 Alkaline Phosphatase 79 Total Protein 6.6 Albumin 3.5 Globulin 3.1 Albumin/Globulin Ratio 1.1 Lipase 16 - Rads (name of study) CT cervical spine Relevant Findings:: Final report received, EMP independent interpretation of test, Other (No acute cervical spine fracture) Head CT without Relevant Findings:: Final report received, EMP independent interpretation of test, Other (No acute intracranial hemorrhage or other acute findings. Left frontal and right occipital soft tissue contusion with subscapular hematomas) PD Medical Decision Making - ED course ED course: 88-year-old male presents emergency department after experiencing a ground-level fall due to weakness. ECG was complete which shows an old/known right bundle branch block. 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 He was found to have mild hyponatremia 133, hypokalemia 3.4 slightly elevated BUN at 29 and a GFR 57 most likely due to dehydration he was given 500 cc IV fluids normal saline to help with this. Magnesium was also found to be low at 1.5. He was given potassium and magnesium to help with his electrolyte abnor malities. Cervical CT does not show any acute abnormalities or findings only chronic arthritic findings. Head CT was complete which did not show any acute intracranial abnormalities or bleeding it did reveal what I am able to visualize myself a left occipital soft tissue contusion and small subscapular hematoma. Patient is able to tolerate p.o.'s patient's reports that he does not eat or drink much at home and presumes his weakness is due to malnutrition and poor caloric intake. We discussed different options and methods of how to increase caloric intake at home patient was given strict ER return precautions was told to follow-up with primary care provider given that he has had multiple ground- level falls and he is on blood thinners I informed the patient and the patient's to continue discussion to see if blood thinners at the right choice for him although given the fact that he has A-fib he has a high risk for stroke or [place]. He was sent home with apartment walker as he has had multiple falls at home to help with his balance and also told to [facility] provider for physical therapy referral to help with strength and conditioning. Departure - Departure Disposition: 01 Home, Self Care Clinical Impression: Hypomagnesemia, Hypokalemia, Ground-level fall Traumatic hematoma of head Qualifiers: Encounter type: initial encounter Qualified Code(s): S00.93XA - Contusion of unspecified part of head, initial encounter Instructions: Diet High Potassium Dc, ED Head Injury Closed Prescriptions: Gabapentin [Neurontin] 100 mg PO TID #30 cap Comments: Thank you for trusting us with your care. As we discussed it is very important that you increase your caloric intake such as protein drinks and increase your electrolyte intake such as Gatorade or coconut water. Please look with your primary care provider about today's ER visit ground-level fall. It is very rare but sometimes you can have a very slow brain bleed that we do not initially tile picker on a CT scan if you are starting generalized increase confusion, lethargy, weakness, or any sort of neurological deficits please come back to the emergency department for repeat evaluation. In regards to the hematoma on your scalp you can apply warm compresses and cold compresses and in about a week or so do some gentle massaging to help your body reabsorb the blood. Please use a walker at all times when ambulating to prevent against recurrent falls. Forms: PCP List Discharge Date/Time: 10/14/23 15:59
[2023-10-14] MEDS: GABAPENTIN 100 MG CAPSULE PO STA (13:13)
--- NOTE | 2023-10-14 14:28 | CT Report ---
PROCEDURE: Head WO INDICATIONS: GLF, head injury TECHNIQUE: Noncontrast 4.5 mm thick angled axial sections acquired from the foramen magnum to the vertex. For r adiation dose reduction, the following was used: automated exposure control, adjustment of mA and/or kV according to patient size. COMPARISON: CT head without, 09/20/2023. FINDINGS: Image quality: Excellent. CSF spaces: Basal cisterns are patent. No extra-axial fluid collections. Ventricles are normal in size and shape. Brain: No midline shift. No intracranial masses or hemorrhage. Mild cerebral volume loss and periv entricular white matter chronic small vessel ischemic changes. Zavala-white matter interface is normal. Skull and face: Calvarium and visualized facial bones are intact, without suspicious lesions. There are left frontal and right occipital soft tissue contusions and small subscapular hematomas. Sinuses: Visualized sinuses and mastoids are clear. IMPRESSION: 1. No acute intracranial pathology.2 2. Left frontal and right occipital soft tissue contusions and small subscapular hematomas. Reviewed by: Keyona Casey MD on 10/14/2023 1:27 PM AKDT Approved by: Keyona Casey MD on 10/14/2023 1:27 PM AKDT Station ID: [id number]
--- NOTE | 2023-10-14 14:34 | CT Report ---
PROCEDURE: Cervical Spine WO INDICATIONS: GLF, head injury TECHNIQUE: Noncontrast 3 mm thick sections acquired from the skull base to the T4 level. Sagittal and coronal r eformats were then constructed. For radiation dose reduction, the following was used: automated exp osure control, adjustment of mA and/or kV according to patient size. COMPARISON: CT cervical spine, 09/20/2023. FINDINGS: Image quality: Excellent. Bones: No fractures or dislocations. Moderate spondylitic changes in cervical spine. Visualized sup erior ribs are intact. Soft tissues: Prevertebral soft tissues are normal in thickness. No paravertebral hematomas. No ap ical pneumothoraces. Severe atherosclerotic calcifications of the carotid arteries bilaterally. Righ t carotid endarterectomy. There is a [id number] left effusion. IMPRESSION: 1. No acute cervical spine fracture. 2. Moderate spondylitic changes in cervical spine. 3. Severe atheromatosis. 4. Small to moderate left pleural effusion. Reviewed by: Keyona Casey MD on 10/14/2023 1:32 PM AKDT Approved by: Keyona Casey MD on 10/14/2023 1:32 PM AKDT Station ID: [id number]
[2023-10-14] MEDS: POTASSIUM CHLORIDE 20 MEQ TABLET PO STA (14:58)
[2023-10-14] MEDS: MAGNESIUM OXIDE 400 MG TABLET PO STA (14:58)
[2023-10-14] MEDS: SODIUM CHLORIDE 0.9% 500 ML IV ONE (14:59)
[2023-10-14 15:53] VITALS: BP 113/73; O2SAT 96
== END 2023-10-14 15:59 | disposition home or self-care (01) ==
LOC: EDUNIT# → ED 12:19
DX: S00.93XA Contusion of unspecified part of head, initial encounter (principal); W18.30XA Fall on same level, unspecified, initial encounter; E83.42 Hypomagnesemia; E87.6 Hypokalemia; I10 Essential (primary) hypertension; I48.91 Unspecified atrial fibrillation; Z79.01 Long term (current) use of anticoagulants
CPT/HCPCS: 36415; 70450; 72125; 80053; 83690; 83735; 85025; 93005; 96360; 99284; A9270

== ENCOUNTER 2023-11-16 09:49 | Outpatient (CLI) | payer MEDICARE, OTHER | END 2023-11-16 23:59 | disposition critical access hospital (66) | LOC: EMS 09:49 | DX: R53.1 Weakness (principal); R06.02 Shortness of breath; R63.8 Other symptoms and signs concerning food and fluid intake | CPT/HCPCS: A0425; A0429 ==

== ENCOUNTER 2023-11-16 10:09 | Inpatient (IN) | payer MEDICARE, OTHER ==
[2023-11-16 10:49] LABS: BASOPHILS % (AUTO) 0.3 %; EOSINOPHILS # (AUTO) 0.5 10^3/uL (0.0-0.7); EOSINOPHILS % (AUTO) 4.7 %; HCT - HEMATOCRIT 31.7 % (42.0-52.0); HGB - HEMOGLOBIN 10.8 g/dL (14.0-18.0); LYMPHOCYTES # (AUTO) 0.5 10^3/uL (1.5-3.5); LYMPHOCYTES % (AUTO) 4.4 %; MEAN CORPUSCULAR HGB CONC 34.1 g/dL (32.0-36.0); MEAN CORPUSCULAR VOLUME 102.6 fL (80.0-94.0); MEAN PLATELET VOLUME 10.3 fL (7.4-11.4); MONOCYTES # (AUTO) 0.8 10^3/uL (0.0-1.0); MONOCYTES % (AUTO) 7.3 %; NEUTROPHILS # (AUTO) 9.1 10^3/uL (1.5-6.6); NEUTROPHILS % (AUTO) 82.7 %; PLT - PLATELET COUNT 240 10^3/uL (130-450); RED BLOOD COUNT 3.09 10^6/uL (4.70-6.10); RED CELL DISTRIBUTION WIDTH 13.2 % (12.0-15.0)
--- NOTE | 2023-11-16 10:53 | XRAY Report ---
PROCEDURE: Chest 1V INDICATIONS: Chest pain TECHNIQUE: One view of the chest was acquired. COMPARISON: 03/14/2022 FINDINGS: Surgical changes and devices: Sternotomy wires and mediastinal clips are seen. Lungs and pleura: Low lung volumes can be seen, causing a crowded appearance to the lung markings. A bnormal interstitial infiltrates can be seen on both sides. There is a small left-sided pleural effus ion. Mediastinum: Mediastinal contours appear normal. Heart size is mildly enlarged. Bones and chest wall: No suspicious bony lesions. Age-appropriate degenerative changes are seen. Overlying soft tissues appear unremarkable. IMPRESSION: There is mild cardiomegaly with abnormal interstitial prominence and a small left-sided pleural effus ion. CHF is suspected. Reviewed by: Osvaldo Zurita MD on 11/16/2023 9:52 AM YOVANI Approved by: Osvaldo Zurita MD on 11/16/2023 9:52 AM YOVANI Station ID: [id number]
[2023-11-16 11:07] LABS: ALBUMIN 3.2 g/dL (3.2-5.5); ALBUMIN/GLOBULIN RATIO 0.9 (1.0-2.2); BILIRUBIN,TOTAL 0.8 mg/dL (0.2-1.0); CALCIUM 9.5 mg/dL (8.5-10.3); CREATININE 0.8 mg/dL (0.6-1.3); POTASSIUM 4.1 mmol/L (3.5-4.5); TOTAL PROTEIN 6.8 g/dL (6.4-8.9)
[2023-11-16 11:42] LABS: B. PARAPERTUSSIS- RESP PCR PAN NOT DETECTED; B. PERTUSSIS- RESP PCR PANEL NOT DETECTED; C. PNEUMONIAE- RESP PCR PANEL NOT DETECTED; CORONAVIRUS 229E-RESP PCR NOT DETECTED; CORONAVIRUS HKU1-RESP PCR NOT DETECTED; CORONAVIRUS NL63-RESP PCR NOT DETECTED; CORONAVIRUS OC43-RESP PCR NOT DETECTED; HUMAN METAPNEUMOVIRUS NOT DETECTED; INFLUENZA A- RESP PCR PANEL NOT DETECTED; INFLUENZA B - RESP PCR PANEL NOT DETECTED; M. PNEUMONIAE- RESP PCR PANEL NOT DETECTED; PARAINFLUENZA VIRUS 1 NOT DETECTED; PARAINFLUENZA VIRUS 2 NOT DETECTED; PARAINFLUENZA VIRUS 3 NOT DETECTED; PARAINFLUENZA VIRUS 4 NOT DETECTED; RHINOVIRUS/ENTEROVIRUS NOT DETECTED; RSV- RESP PCR PANEL NOT DETECTED; SARS-CoV-2 -RESP PCR PANEL NOT DETECTED
[2023-11-16] MEDS: FUROSEMIDE 40 MG/4 ML VIAL IVP STA (12:04)
[2023-11-16] MEDS: IPRATROPIUM/ALBUTEROL 3 ML NEB INH STA (12:07)
[2023-11-16] MEDS: DEXAMETHASONE 10 MG/ML VIAL IVP STA (12:07)
[2023-11-16] MEDS: MAGNESIUM SULFATE 2 GRAM 2 GM/50 ML BAG IV ONE (12:42)
[2023-11-16] MEDS ORDERED: ONDANSETRON 4 MG/2 ML VIAL IVP PRN (13:18)
[2023-11-16] MEDS ORDERED: SODIUM CHLORIDE FLUSH 0.9% 10 ML SYRINGE IVP PRN (13:18)
[2023-11-16] MEDS ORDERED: oxyCODONE 5 MG TABLET PO PRN (13:18)
[2023-11-16] MEDS ORDERED: ACETAMINOPHEN 325 MG TABLET PO PRN (13:18)
[2023-11-16] MEDS ORDERED: ONDANSETRON ODT 4 MG TABLET TL PRN (13:18)
[2023-11-16] MEDS ORDERED: ALBUTEROL NEB 2.5 MG/3 ML INH PRN (13:21)
[2023-11-16] MEDS ORDERED: FORMOTEROL FUMARATE NEB 20 MCG/2 ML INH STA (13:21)
[2023-11-16] MEDS: ALBUTEROL NEB 2.5 MG/3 ML INH STA (13:28)
--- NOTE | 2023-11-16 13:47 | HISTORY & PHYSICAL EXAMINATION ---
Chief Complaint - Chief Complaint Chief Complaint: cough, congestion and corey, now at rest for 3 weeks History of Present Illness - Admitted From Admitted From:: home - History Obtained From Records Reviewed: [facility] and [facility] History obtained from: patient and EMR Exam Limitations: mild memory loss - History of Present Illness HPI Comment/Other: This is an 88-year-old white male who has a [id number] history and quit smoking in 2021, not on oxygen, and has chronic shortness of breath due to both his lung disease and heart disease with a history of CABG x 5 in 1991. He takes ProAir as needed but has not used it in a few years. 2 to 3 weeks ago he and his noted that he is being getting more short of br eath with activity. He is starting to feel more tired and does not want to get up and do things. He is now short of breath when he lays down. And then the last few days he is short of breath with trying to get to the bathroom. He has chronic leg edema but that also seems to be worse. He is followed by Dr. Brandt from [facility] cardiology and he has documented coronary artery disease with a ZAYAS graft to the LAD, SVG to diagonal, SVG to ramus, SVG to obtuse marginal branch to an SVG to the PDA in 1991. In 1991 his ejection fraction was 35%. He had a follow-up angiogram in 2007 and he was told that he had the same blockages and that his bypass grafts were open. He then saw Dr. Brandt in follow-up in November 2012. He had follow-up echocardiograms in 2017 and 2021. The 2018 ejection fraction was 55 to 60%. His right ventricle was normal in size was normal. His RVSP at rest was 39 mmHg. He had mild to moderate mitral regurgitation. He then had a June 2022 echo and ejection fraction is still maintained at 55 to 60%. He now has right ventricular enlargement that is mild, systolic function and normal, but his RVSP has gone up to 57 mmHg. No significant valvular heart disease. He does have marked left atrial enlargement. He has permanent atrial fibrillation. He was started on Lasix when that echo came back. But the Lasix caused excessive urination and he s topped it. His manager ui then used chlorthalidone and that was tolerated and he is staying on that. At that time he did not have any orthopnea or PND with a follow-up in July 2023. To his knowledge he has never been seen by clothing worker. He does not know of any pulmonary function study volumes. The patient tells me that his has gone back home. But he was able to give me a review of systems that was cogent and lucid. When he came to certain details he said that I would have to ask his . When I ask him what he thinks is wrong with him he tells me that he really just thinks it is his lungs. They just feels so congested and he keeps on wanting to bring up phlegm. He has received Lasix and he is irritated about it. He just has to urinate so much. Is able to speak to his as well. I had her on the phone. And spoke to him at the same time. We both agreed that he was frail but compensating well. He was still able to pay bills, cook some meals. Then the week before and he developed right arm pain. Then it went to the left arm pain. His hands were getting numb. He had a C-spine CT scan in October which does not show severe cord compression. Just osteoarthritis. He then has been referred to orthopedics to get nerve conduction studies and be evaluated for carpal tunnel. All of this is taking so long. He feels like he is getting weaker. More short of breath. 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 Was given exercises to do back then and has never followed up on them. He finds that he is choking more and more and his voice is getting more and more hoarse. He is fallen twice now. Losing his balance and really hurting himself so Eliquis has been discontinued. He feels like the quality of his life is deteriorated substantially since the beginning of this year. He is tired of all this. He is not suicidal. He does want to kill himself. But he started feeling sick, tired of feeling tired, and more than anything else just exasperated by the entire medical system taking so long to figure out what is wrong with him. He would like a Pierson catheter. Because accompanying all of this is worsening lower urinary tract symptoms of retention from his prostate. He sees a urologist and was given tamsulosin. Dose increased. For a long time and help. But again, since August, that is gotten worse. He is tired of the in dignity of having urinary incontinence. Wearing a diaper. And he asked if we could please give him a Pierson catheter History - Past Medical History Cardiovascular: reports: Hypertension, High cholesterol, Coronary artery disease (Previous CABG/bypass surgery many years ago. Sees Dr. Brandt in [place]. No known angina nor CHF per se. Not on diuretics.), Peripheral Vascular Disease (Carotid bruits. Carotid endarterectomy on the . Carotid Dopplers ordered in July 2023 unknown results. Has claudication.), HI (1991), Atrial fibril lation, Murmur. denies: Valve disorder Respiratory: reports: COPD ( daily. No rescue inhaler.), Emphysema, Shortness of breath Neuro: reports: Dementia (poor memory per . ) Endocrine/Autoimmune: reports: None GI: reports: None : reports: Benign prostate hypertrophy (seen by [facility]), Renal insuffiency (Chronic kidney disease stage III) HEENT: reports: Chronic vision loss, Macular degeneration, Other (Cataracts removed in the past) Psych: reports: None Musculoskeletal: reports: Osteoarthritis Derm: reports: None MRSA Hx?: No - Past Surgical History General: reports: Appendectomy Cardiovascular: reports: CABG - Family & Social History Family History Comment/Other: Both of his parents for request from call back. He does not remember how old they were when they but they of old age. He was the baby of the family (change of life baby) and had 3 siblings older than him. He was 10 years younger than next. They also of old age. He has 2 kids. They are healthy. Living arrangement: At home Living Situation: With spouse/s.o. Social History Notes: Born and raised in [place]. Family was from [place]. Went into the [employer] and met his when he was 26 and she was 19. He smoked [id number] history and quit in 2021 and stoutly maintains he has not smoked since. He was never an alcohol abuser and drink maybe 1 drink and night and stop drinking when he stopped smoking. History of recreational substance abuse. Currently lives with his in their own home in [place] - Substance History Use: Uses substance without health or social issues: NONE Abuse: Recurrent use of substance despite neg consequences: NONE Dependence: Experiences withdrawal or developed tolerances: NONE - POLST Patient has POLST: No POLST Status: DNR Meds/Allgy - Home Medications Home Medications: Ambulatory Orders Medication Instructions Recorded Confirmed Atorvastatin Calcium 40 mg PO DAILY 08/06/17 11/16/23 atenoloL [Atenolol] 25 mg PO DAILY 08/06/17 11/16/23 Fluticasone/Umeclidin/Vilanter 1 inh PO DAILY 09/20/23 11/16/23 [Trelegy Ellipta 200-62.5-25] Tamsulosin [Flomax] 0.4 mg PO HS 09/20/23 11/16/23 Acetaminophen/Diphenhydramine [Cvs 2 each PO QPM PRN 11/16/23 11/16/23 Acetaminophen Pm Caplet] Aspirin Chewable [[facility] 81 mg PO BID 11/16/23 11/16/23 Aspirin] Cyanocobalamin [Vitamin B-12] 500 mcg PO DAILY 11/16/23 11/16/23 Ferrous Gluconate [Fergon] 324 mg PO DAILY 11/16/23 11/16/23 Folic Acid 1 mg PO DAILY 11/16/23 11/16/23 Isosorbide Dinitrate [Isordil] 10 mg PO BID 11/16/23 11/16/23 Multivitamin [Theragran] 1 each PO DAILY 11/16/23 11/16/23 Pregabalin [Lyrica] 25 mg PO BID 11/16/23 11/16/23 - Allergies Allergies/Adverse Reactions: Allergies Allergy/AdvReac Type Severity Reaction Status Date / Time cephalexin [From Keflex] AdvReac Unknown Verified 11/16/23 10:24 Review of Systems - Constitutional Constitutional: reports: Fatigue, Malaise, Weakness, Poor appetite (can't taste food, no appeties), Weight loss (10). denies: Fever, Chills, Night sweats - Eyes Eyes: reports: Pain, Irritation, Amaurosis, Blurred vision - Ears, Nose & Throat Ears, Nose & Throat: reports: Hearing loss, Hoarseness (for 4-5 months ? cause, related to epiglottis) - Cardiovascular Cariovascular: reports: Irregular heart rate, Edema, Exertional dyspnea, Decr. exercise tolerance, Orthopnea. denies: Palpitations, Chest pain, Syncope - Respiratory Respiratory: reports: Cough, Sputum production, Wheezing, Orthopnea, SOB at rest (new for a few days), SOB with exertion (chronic but worse in the last 3 weeks, now at rest) - Gastrointestinal Gastrointestinal: reports: Poor appetite, Other (choking now. had speech eval yrs ago and epiglottis doesn't close. doesn't do exercise.). denies: Abdominal pain, Abdominal distention, Constipation, Diarrhea, Change in bowel habits - Genitourinary Genitourinary: reports: Frequency, Urgency, Incontinence, Nocturia - Musculoskeletal Musculoskeletal: denies: Muscle pain, Back pain, Muscle aches, Stiffness, Joint pain - Integumentary Integumentary: denies: Rash, Pruritis, Lesions, Dryness - Neurological Neurological: reports: General weakness, Numbness (in hands and can't hold stuff, can't do his word working and depressed at how much his life has deteriorated), Memory problems (getting worse over last year.), Incoordination (with falls increasin w head hitting bumper of car then cement floor (hit so hard had passed out), 1 face plant on hard wood floor in kitchen. all about balance. shuffles his feet more and more), Other (tremors for a long time now) - Psychiatric Psychiatric: reports: Depression ("tired of being tired" especially in last few months. Fleeting thought of wishing he could "be gone and not have to do this"). denies: Delusions, Hallucinations, Homicidal - Endocrine Endocrine: reports: Intolerance to cold. denies: Polyuria, Polydypsia, Polyphagia - Hematologic/Lymphatic Hematologic/Lymphatic: reports: Anemia, Bruising. denies: Petechiae, Blood clots, Lymphadenopathy, Bleeding tendencies Prior Level of Functionality: no driving since 08/2023. Beween xmas and new years his issues came to a head. Feeds self and dressing but in last few week numbness in hands so needs help with dressing or feeding, loss of strenght in hand bc of carpal tunnel. forgetful. incontinent recently. thinkgs he's done and then has to go agin. in last few months worse. wants a pierson. He use to pay bills and cook for them but then July happened. Work up one morning and arms started to hurt and down hill from there. Exam - Vital Signs Reviewed Vital Signs: Yes Vital Signs: Vital Signs x48h Temp Pulse Resp BP Pulse Ox O2 Flow Rate 11/16/23 13:28 80 18 2 11/16/23 12:49 35.6 C L 92 18 146/83 H 96 2 11/16/23 12:12 88 18 2 11/16/23 11:52 86 L 11/16/23 10:18 35.8 C L 87 24 137/71 H 94 - Physical Exam General Appearance: positive: No acute distress, Alert, Other (thin white eldelry male w bruises on L cheeck and over L face.) Eyes Bilateral: positive: PERRL, EOMI ENT: positive: Pharynx nml, No signs of dehydration, Other (Voice low in volume and hoarse) Neck: positive: No JVD, Carotid bruit (Bilateral, R>L). negative: Stiff neck Respiratory: positive: No respiratory distress, Wheezes (faint and scattered). negative: Rales, Rhonchi Cardiovascular: positive: Irregularly irregular, Tachycardia Abdomen: positive: Non-tender, No organomegaly, Nml bowel sounds, No distention Skin: positive: Warm (face, arms, trunk and hands but skin of legs and feet are cold), Dry Extremities: positive: Full ROM, Pedal edema Neurologic/Psychiatric: positive: Oriented x3, CN's nml (2-12), Slurred/abnml speech (hoarse), Depressed mood/affect. negative: Motor nml (generalized weakness and hard to move himself to sitting and b/l hand tremor, ?head tremor) Sepsis Event Note (H) - Evaluation Current Stage of Sepsis: Ruled out Conclusion/Plan - Problem List (1) Acute respiratory failure with hypoxia Conclusion/Plan: This gentleman has documented heart and lung disease. But he has not needed oxygen at home before. He describes a sudden change in status of pain and weakness in his arms, hands, increasing falls on top of the dyspnea on exertion now dyspnea at rest. Voice also appears to be getting weaker. While his acute respiratory failure could be attributed to either cor pulmonale or COPD with exacerbation, I do wonder if this gentleman has a neurologic disorder that we may be missing. A CT of the spine was done for cord compression and was negative. But is taken a long time for him to be evaluated for nerve conduction studies. Plan: Treat as CHF with his beta-esther, HILDA inhibitor, and Lasix. Be judicious in the use of Lasix and he probably only get 1 or 2 doses and that is it for me. I do not want overdiuresed him Also treat as COPD exacerbation with steroids, long-acting bronchodilators, inhaled steroids, and short acting bronchodilators. He is currently on nasal cannula oxygen and that will be continued. (2) COPD (chronic obstructive pulmonary disease) Conclusion/Plan: He rarely uses a short acting bronchodilator at home. And he takes fluticasone with umeclidinium and vilanterol on a regular basis. Chest x-ray is without infiltrate. White cell count is slightly elevated. Viral panel negative for the flu, rhinovirus, coronavirus. Plan: DuoNeb on a regular schedule IV times a day Albuterol every 2 hours as needed Perforomist twice daily Budesonide twice daily Oxygen to maintain O2 sats around 92%. Qualifiers: COPD type: COPD with acute exacerbation Qualified Code(s): J44.1 - Chronic obstructive pulmonary disease with (acute) exacerbation (3) Cor pulmonale Conclusion/Plan: EchoCardiogram confirms rising RVSP pressures. I would think that with his acute exacerbation of COPD, his RSVP would also rise acutely. That would cause cor pulmonale. That is being treated with Lasix. (4) BPH loc w urin obs/LUTS Conclusion/Plan: resume home dose of flomax. Place pierson at his request. I warned he and of risk of UTI. asks if I could have our local Urologist, Dr. Oconnor, see him. I will ask for consult but there is no inpatient requirement for now and warned he may not be seen. (5) Radiculopathy of cervical spine Conclusion/Plan: He gives symptoms of decreasing strength in his arms, arm pain, hand numbness and pain. He is lost functionally to the point that he cannot use his hands to dress himself. Cannot use his hands to feed himself. He has worsening urinary incontinence. While he is always had prostate problems the urinary incontinence was not a problem until now.MRI done in September for this shows moderate to severe bilateral neuroforaminal narrowing from C2 down to C6. At C4-5 he has mild central canal narrowing seen with mild mass effect upon the ventral spinal cord. I would recommend that he be seen by Neurosurgery or orthopedic spine surgery in the outpatient setting and the agrees but both she and her are frustrated by the slow pace. He is lost so much ground in the last 3 months that it is frightening her. And making him lose hope. I will discuss with his primary care provider to see where the referral has been made and see if I could call the surgeon to have a discussion to further along the workup Will also have PT and OT see him (6) Anemia Conclusion/Plan: He and his state that he is always had a little bit of anemia but has gotten worse over the last few months. No review of systems positive for GI bleed. As far as they know he does not have a B12 deficiency. His thyroid is normal. 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 I see that all in our legal section in the electronic medical record. He does wish to be DO NOT RESUSCITATE. I asked his if she feels comfortable having him sign a POLST form. She says that she wants to give him the dignity to make his own decisions is much as possible. She supports his decision to be DNR and she would let him sign DNR and she agrees that that is what he would have wanted even without memory loss. So I will have him sign a POLST form tomorrow morning. - Lab Results Lab results reviewed: Yes Fish Bones: 11/16/23 10:35 11/16/23 10:35 - Diagnostic Imaging Results Diagnostic Imaging Results: positive: Final report reviewed - EKG Results EKG Interpreted Independently: No Core Measures - Anticipated LOS I expect patient to be DC'd or transferred within 96 hours.: Yes - DVT/VTE - Prophylaxis VTE/DVT Prophylaxis med ordered at admit?: Yes
[2023-11-16] MEDS ORDERED: IPRATROPIUM/ALBUTEROL 3 ML NEB INH PRN (14:01)
[2023-11-16] MEDS: methylPREDNISolone SUCCINATE 40 MG/ML VIAL IVP SCH (14:16)
--- NOTE | 2023-11-16 14:49 | PHARMACY PROGRESS NOTE ---
- Best Possible Medication History Admit Date and Time: 11/16/23 1318 Processed by: Pharmacy Medications reviewed in ED?: No Medication History completed: Yes Patient Interview: Completed Secondary Source(s): Spouse/Significant other, Pharmacy records, Insurance records As the person ultimately responsible for medication therapy, providers are able to order a medication from an existing home medication list in [facility] via the "Reconcile Routine" prior to Confirmation of that medication by field support specialist. Such practice is discouraged except when the physician, in their clinical judgment, deems that a medical need exists for a medication without regard to previous use.
[2023-11-16] MEDS: IPRATROPIUM/ALBUTEROL 3 ML NEB INH SCH (15:15)
[2023-11-16] MEDS ORDERED: IPRATROPIUM 0.2 MG/ML NEB INH SCH (19:00)
[2023-11-16] MEDS: BUDESONIDE 0.5 MG/2 ML NEB INH SCH (19:22)
[2023-11-16] MEDS: FORMOTEROL FUMARATE NEB 20 MCG/2 ML INH SCH (19:22)
[2023-11-16] MEDS: TAMSULOSIN 0.4 MG CAPSULE PO SCH (21:47)
[2023-11-16] MEDS: PREGABALIN 25 MG CAPSULE PO SCH (21:47)
[2023-11-16] MEDS: ASPIRIN CHEW 81 MG TABLET PO SCH (21:47)
[2023-11-16] MEDS: SODIUM CHLORIDE FLUSH 0.9% 10 ML SYRINGE IVP SCH (21:48)
[2023-11-16] MEDS: ISOSORBIDE DINITRATE 10 MG TABLET PO SCH (21:48)
[2023-11-17] MEDS: ZOLPIDEM 5 MG TABLET PO SCH (00:18)
[2023-11-17 05:34] LABS: BASOPHILS % (AUTO) 0.1 %; EOSINOPHILS % (AUTO) 0.1 %; HCT - HEMATOCRIT 32.6 % (42.0-52.0); HGB - HEMOGLOBIN 10.6 g/dL (14.0-18.0); LYMPHOCYTES # (AUTO) 0.3 10^3/uL (1.5-3.5); LYMPHOCYTES % (AUTO) 2.9 %; MEAN CORPUSCULAR HEMOGLOBIN 33.1 pg (27.0-31.0); MEAN CORPUSCULAR HGB CONC 32.5 g/dL (32.0-36.0); MEAN CORPUSCULAR VOLUME 101.9 fL (80.0-94.0); MEAN PLATELET VOLUME 10.9 fL (7.4-11.4); MONOCYTES # (AUTO) 0.3 10^3/uL (0.0-1.0); MONOCYTES % (AUTO) 3.3 %; NEUTROPHILS # (AUTO) 8.9 10^3/uL (1.5-6.6); NEUTROPHILS % (AUTO) 92.8 %; PLT - PLATELET COUNT 265 10^3/uL (130-450); RED CELL DISTRIBUTION WIDTH 13.1 % (12.0-15.0); WHITE BLOOD COUNT 9.6 x10^3/uL (4.8-10.8)
[2023-11-17 05:49] LABS: CALCIUM 9.5 mg/dL (8.5-10.3); CREATININE 0.8 mg/dL (0.6-1.3); POTASSIUM 4.4 mmol/L (3.5-4.5)
[2023-11-17] MEDS ORDERED: MULTIVITAMIN TABLET PO SCH (09:00)
[2023-11-17] MEDS ORDERED: FOLIC ACID 1 MG TABLET PO SCH (09:00)
[2023-11-17 09:02] LABS: PSA TOTAL 1.557 ng/mL (0.000-2.000)
[2023-11-17] MEDS: CYANOCOBALAMIN 500 MCG TABLET PO SCH (09:09)
[2023-11-17] MEDS: BENZOCAINE/MENTHOL LOZENGE MM PRN (09:09)
[2023-11-17] MEDS: ATORVASTATIN 40 MG TABLET PO SCH (09:09)
[2023-11-17] MEDS: atenoloL 25 MG TABLET PO SCH (09:09)
[2023-11-17] MEDS: PRENATAL VITAMIN TABLET PO SCH (09:09)
[2023-11-17] MEDS: FERROUS GLUCONATE 324 MG TABLET PO SCH (09:10)
--- NOTE | 2023-11-17 11:42 | PROVIDER PROGRESS NOTE ---
Subjective - Prog Note Date Prog Note Date: 11/17/23 Prog Note Time: 11:37 - Subjective Pt reports feeling: Improved Subjective: Says that he is less short of breath at rest. The only time he gets short of breath is when he had him get out of the bed to the chair and it took him a bit to recover. But he smiled and said that he is easy is not short of breath with moving his legs around or trying to talk anymore. Leg edema is much improved. He says that his urination is improved and he is not incontinent anymore. He seems to forget that he has a Pierson in place now and is surprised about that. Current Medications - Current Medications Current Medications: Active Medications Acetaminophen (Acetaminophen 325 Mg Tablet) 650 mg PO Q4HR PRN PRN Reason: Pain 1 to 4, or Fever Albuterol (Albuterol Neb 2.5 Mg/3 Ml) 2.5 mg INH Q2HR PRN PRN Reason: Wheezing Albuterol/Ipratropium (Ipratropium/Albuterol 3 Ml Neb) 3 ml INH RTQID [facility] Last Admin: 11/17/23 11:20 Dose: Not Given Aspirin (Aspirin Chew 81 Mg Tablet) 81 mg PO BID [facility] Last Admin: 11/17/23 09:09 Dose: 81 mg Atenolol (Atenolol 25 Mg Tablet) 25 mg PO DAILY [facility] Last Admin: 11/17/23 09:09 Dose: 25 mg Atorvastatin Calcium (Atorvastatin 40 Mg Tablet) 40 mg PO DAILY [facility] Last Admin: 11/17/23 09:09 Dose: 40 mg Budesonide (Budesonide 0.5 Mg/2 Ml Neb) 0.5 mg INH RTBID [facility] Last Admin: 11/17/23 07:33 Dose: 0.5 mg Cyanocobalamin (Cyanocobalamin 500 Mcg Tablet) 500 mcg PO DAILY [facility] Last Admin: 11/17/23 09:09 Dose: 500 mcg Ferrous Gluconate (Ferrous Gluconate 324 Mg Tablet) 324 mg PO DAILY [facility] Last Admin: 11/17/23 09:10 Dose: 324 mg Formoterol Fumarate (Formoterol Fumarate Neb 20 Mcg/2 Ml) 20 mcg INH RTBID [facility] Last Admin: 11/17/23 07:33 Dose: Not Given Isosorbide Dinitrate (Isosorbide Dinitrate 10 Mg Tablet) 10 mg PO BID [facility] Last Admin: 11/17/23 09:10 Dose: 10 mg Ondansetron HCl (Ondansetron Odt 4 Mg Tablet) 4 mg TL Q6HR PRN PRN Reason: Nausea / Vomiting Ondansetron HCl (Ondansetron 4 Mg/2 Ml Vial) 4 mg IVP Q6HR PRN PRN Reason: Nausea / Vomiting Oxycodone HCl (Oxycodone 5 Mg Tablet) 5 mg PO Q4HR PRN PRN Reason: Pain 5 to 7 Pregabalin (Pregabalin 25 Mg Capsule) 25 mg PO BID [facility] Last Admin: 11/17/23 09:09 Dose: 25 mg Multivit/Folic Acid/Iron ( Vitamin Tablet) 1 tab PO DAILYWM [facility] Last Admin: 11/17/23 09:09 Dose: 1 tab Sodium Chloride (Sodium Chloride Flush 0.9% 10 Ml Syringe) 10 ml IVP PRN PRN PRN Reason: NEEDED PER PROVIDER ORDERS Sodium Chloride (Sodium Chloride Flush 0.9% 10 Ml Syringe) 10 ml IVP 0100,0900,1700 [facility] Last Admin: 11/17/23 09:10 Dose: 10 ml Tamsulosin HCl (Tamsulosin 0.4 Mg Capsule) 0.4 mg PO HS [facility] Last Admin: 11/16/23 21:47 Dose: 0.4 mg Throat Lozenges (Benzocaine/Menthol Lozenge) 1 lozenge MM Q2HR PRN PRN Reason: Throat pain Last Admin: 11/17/23 09:09 Dose: 1 lozenge Zolpidem Tartrate (Zolpidem 5 Mg Tablet) 5 mg PO ONCE [facility] Stop: 12/17/23 23:44 Last Admin: 11/17/23 00:18 Dose: 5 mg Atorvastatin Calcium 40 mg PO DAILY 08/06/17 atenoloL [Atenolol] 25 mg PO DAILY 08/06/17 Fluticasone/Umeclidin/Vilanter [Trelegy Ellipta 200-62.5-25] 1 inh PO DAILY 09/20/23 Tamsulosin [Flomax] 0.4 mg PO HS 09/20/23 Acetaminophen/Diphenhydramine [[facility] Acetaminophen Pm Caplet] 2 each PO QPM PRN 11/16/23 Aspirin Chewable [[facility] Aspirin] 81 mg PO BID 11/16/23 Cyanocobalamin [Vitamin B-12] 500 mcg PO DAILY 11/16/23 Ferrous Gluconate [Fergon] 324 mg PO DAILY 11/16/23 Folic Acid 1 mg PO DAILY 11/16/23 Isosorbide Dinitrate [Isordil] 10 mg PO BID 11/16/23 Multivitamin [Theragran] 1 each PO DAILY 11/16/23 Pregabalin [Lyrica] 25 mg PO BID 11/16/23 Objective - Vital Signs/Intake & Output Reviewed Vital Signs: Yes Vital Signs: Vital Signs x48h Temp Pulse Pulse Pulse Pulse Pulse Resp 11/17/23 09:01 110 H 102 H 120 H 11/17/23 07:35 88 16 11/17/23 07:28 36.6 C 81 16 11/17/23 04:10 36.6 C 82 18 BP BP BP BP Pulse Ox Pulse Ox Pulse Ox 11/17/23 09:01 83/54 L 98/63 87/53 L 88 L 94 11/17/23 07:35 11/17/23 07:28 139/74 H 95 11/17/23 04:10 118/67 96 Pulse Ox O2 Flow Rate 11/17/23 09:01 93 11/17/23 07:35 2 11/17/23 07:28 2 11/17/23 04:10 2 Intake & Output: Intake & Output 11/14/23 11/15/23 11/16/23 11/17/23 23:59 23:59 23:59 23:59 Intake Total 656 1000 Output Total 1250 950 Balance -594 50 - Objective General Appearance: positive: No acute distress, Alert, Other (Cachectic elderly gentleman sitting upright in a chair for breakfast. Able to carry on a normal conversation without any dyspnea. When I redo his exam by lifting his legs, yesterday he was short of breath with minimal exertion. Today he can do that without starting to get tachypneic) Eyes Bilateral: positive: PERRL, EOMI ENT: positive: Pharynx nml, Other (Faded bruises on the left side of his face) Neck: positive: No JVD. negative: Stiff neck Respiratory: positive: No respiratory distress, Rhonchi (Acute to midlung omalley. But the wheezing from yesterday are gone.). negative: Wheezes, Rales Cardiovascular: positive: Irregularly irregular, Systolic murmur Abdomen: positive: Non-tender, No organomegaly, Nml bowel sounds, No distention Skin: positive: Warm, Dry Extremities: positive: Full ROM, No pedal edema (YASHIRA hose in place) Neurologic/Psychiatric: positive: Oriented x3, CN's nml (2-12), Slurred/abnml speech (From yesterday improved. Dysphonia is improved. Voice is clearer and stronger). negative: Motor nml (Generalized weakness and needs a 1 person assist. His arms can barely be lifted off of the table. Hands have 2 out of 5 hand strength. He can clamp down on my fingers but without any strength in my fingers leave his hands very easily. Hyperreflexia of biceps. Cannot lift his legs straight out a) - Lab Results Fish Bones: 11/17/23 04:29 11/17/23 04:29 Other Labs: Lab Results x24hrs 11/17/23 11/17/23 11/17/23 Range/Units 04:29 04:29 04:29 WBC 9.6 (4.8-10.8) x10^3/uL RBC 3.20 L (4.70-6.10) 10^6/uL Hgb 10.6 L (14.0-18.0) g/dL Hct 32.6 L (42.0-52.0) % MCV 101.9 H (80.0-94.0) fL MCH 33.1 H (27.0-31.0) pg MCHC 32.5 (32.0-36.0) g/dL RDW 13.1 (12.0-15.0) % Plt Count 265 (130-450) 10^3/uL MPV 10.9 (7.4-11.4) fL Neut # (Auto) 8.9 H (1.5-6.6) 10^3/uL Lymph # (Auto) 0.3 L (1.5-3.5) 10^3/uL Mcculloch # (Auto) 0.3 (0.0-1.0) 10^3/uL Eos # (Auto) 0.0 (0.0-0.7) 10^3/uL Baso # (Auto) 0.0 (0.0-0.1) 10^3/uL Absolute Nucleated RBC 0.00 x10^3/uL Nucleated RBC % 0.0 /100WBC Sodium 126 L (135-145) mmol/L Potassium 4.4 (3.5-4.5) mmol/L Chloride 89 L (101-111) mmol/L Carbon Dioxide 29 (21-32) mmol/L Anion Gap 8.0 (6-13) BUN 18 (6-20) mg/dL Creatinine 0.8 (0.6-1.3) mg/dL Estimated GFR (MDRD) 91 (>89) Glucose 126 H (74-104) mg/dL Calcium 9.5 (8.5-10.3) mg/dL Magnesium (1.7-2.3) mg/dL B-Natriuretic Peptide 469 H (5-100) pg/mL Total PSA (0.000-2.000) ng/mL Nasal Adenovirus (PCR) Nasal B. parapertussis DNA (PCR) Nasal Coronavir 229E PCR Nasal Coronavir HKU1 PCR Nasal Coronavir NL63 PCR Nasal Coronavir OC43 PCR Nasal Enterovir/Rhinovir PCR Nasal Influenza B PCR Nasal Influenza A PCR Nasal Parainfluen 1 PCR Nasal Parainfluen 2 PCR Nasal Parainfluen 3 PCR Nasal Parainfluen 4 PCR Nasal RSV (PCR) Nasal B.pertussis DNA PCR Nasal C.pneumoniae (PCR) Nixon Human Metapneumo PCR Nasal M.pneumoniae (PCR) Nasal SARS-CoV-2 (PCR) 11/16/23 11/16/23 11/16/23 Range/Units 10:35 10:35 10:35 WBC (4.8-10.8) x10^3/uL RBC (4.70-6.10) 10^6/uL Hgb (14.0-18.0) g/dL Hct (42.0-52.0) % MCV (80.0-94.0) fL MCH (27.0-31.0) pg MCHC (32.0-36.0) g/dL RDW (12.0-15.0) % Plt Count (130-450) 10^3/uL MPV (7.4-11.4) fL Neut # (Auto) (1.5-6.6) 10^3/uL Lymph # (Auto) (1.5-3.5) 10^3/uL Mcculloch # (Auto) (0.0-1.0) 10^3/uL Eos # (Auto) (0.0-0.7) 10^3/uL Baso # (Auto) (0.0-0.1) 10^3/uL Absolute Nucleated RBC x10^3/uL Nucleated RBC % /100WBC Sodium (135-145) mmol/L Potassium (3.5-4.5) mmol/L Chloride (101-111) mmol/L Carbon Dioxide (21-32) mmol/L Anion Gap (6-13) BUN (6-20) mg/dL Creatinine (0.6-1.3) mg/dL Estimated GFR (MDRD) (>89) Glucose (74-104) mg/dL Calcium (8.5-10.3) mg/dL Magnesium 1.5 L (1.7-2.3) mg/dL B-Natriuretic Peptide 269 H (5-100) pg/mL Total PSA 1.557 (0.000-2.000) ng/mL Nasal Adenovirus (PCR) Nasal B. parapertussis DNA (PCR) Nasal Coronavir 229E PCR Nasal Coronavir HKU1 PCR Nasal Coronavir NL63 PCR Nasal Coronavir OC43 PCR Nasal Enterovir/Rhinovir PCR Nasal Influenza B PCR Nasal Influenza A PCR Nasal Parainfluen 1 PCR Nasal Parainfluen 2 PCR Nasal Parainfluen 3 PCR Nasal Parainfluen 4 PCR Nasal RSV (PCR) Nasal B.pertussis DNA PCR Nasal C.pneumoniae (PCR) Nixon Human Metapneumo PCR Nasal M.pneumoniae (PCR) Nasal SARS-CoV-2 (PCR) 11/16/23 Range/Units 10:35 WBC (4.8-10.8) x10^3/uL RBC (4.70-6.10) 10^6/uL Hgb (14.0-18.0) g/dL Hct (42.0-52.0) % MCV (80.0-94.0) fL MCH (27.0-31.0) pg MCHC (32.0-36.0) g/dL RDW (12.0-15.0) % Plt Count (130-450) 10^3/uL MPV (7.4-11.4) fL Neut # (Auto) (1.5-6.6) 10^3/uL Lymph # (Auto) (1.5-3.5) 10^3/uL Mcculloch # (Auto) (0.0-1.0) 10^3/uL Eos # (Auto) (0.0-0.7) 10^3/uL Baso # (Auto) (0.0-0.1) 10^3/uL Absolute Nucleated RBC x10^3/uL Nucleated RBC % /100WBC Sodium (135-145) mmol/L Potassium (3.5-4.5) mmol/L Chloride (101-111) mmol/L Carbon Dioxide (21-32) mmol/L Anion Gap (6-13) BUN (6-20) mg/dL Creatinine (0.6-1.3) mg/dL Estimated GFR (MDRD) (>89) Glucose (74-104) mg/dL Calcium (8.5-10.3) mg/dL Magnesium (1.7-2.3) mg/dL B-Natriuretic Peptide (5-100) pg/mL Total PSA (0.000-2.000) ng/mL Nasal Adenovirus (PCR) NOT DETECTED Nasal B. parapertussis DNA (PCR) NOT DETECTED Nasal Coronavir 229E PCR NOT DETECTED Nasal Coronavir HKU1 PCR NOT DETECTED Nasal Coronavir NL63 PCR NOT DETECTED Nasal Coronavir OC43 PCR NOT DETECTED Nasal Enterovir/Rhinovir PCR NOT DETECTED Nasal Influenza B PCR NOT DETECTED Nasal Influenza A PCR NOT DETECTED Nasal Parainfluen 1 PCR NOT DETECTED Nasal Parainfluen 2 PCR NOT DETECTED Nasal Parainfluen 3 PCR NOT DETECTED Nasal Parainfluen 4 PCR NOT DETECTED Nasal RSV (PCR) NOT DETECTED Nasal B.pertussis DNA PCR NOT DETECTED Nasal C.pneumoniae (PCR) NOT DETECTED Nixon Human Metapneumo PCR NOT DETECTED Nasal M.pneumoniae (PCR) NOT DETECTED Nasal SARS-CoV-2 (PCR) NOT DETECTED ABX Reporting Has patient been on IV antibiotics over the past 48 hours?: No Sepsis Event Note (H) - Evaluation Current Stage of Sepsis: Ruled out Assessment/Plan - Problem List (1) Acute respiratory failure with hypoxia Impression: This gentleman has documented heart and lung disease. But he has not needed oxygen at home before. He describes a sudden change in status of pain and weakness in his arms, hands, increasing falls on top of the dyspnea on exertion now dyspnea at rest. Voice also appears to be getting weaker. He also reports that he has been having urinary incontinence. While he is always had symptoms of prostatism the urinary incontinence has gotten substantially worse over the last few weeks. While his acute respiratory failure could be attributed to either cor pulmonale or COPD with exacerbation, I do wonder if this gentleman has a neurologic disorder that we may be missing.He has had 2 CTs of the spine done in the emergency room because of falls in the last 2 months and they are negative. However an MRI done in September of this year shows myelopathy. He has severe bilateral foraminal stenosis on both sides from C3-C6. Been referred to neurology and apparently is awaiting nerve conduction velocity testing. Treated for both congestive heart failure with beta-esther, HILDA inhibitor and Lasix. He bitterly hated the Lasix and asked for a Pierson yesterday afternoon and I put went in. He really appreciates that. I also treated him for COPD exacerbation with IV steroids, long-acting bronchodilators, inhaled steroids, and short acting bronchodilators. He is also on nasal cannula oxygen. He says that he is improved quite a bit between yesterday and today. Yesterday he was dyspneic with just lifting his legs for me to do a neuroexam. Today he is better. But he still needs oxygen. Plan: Continue current regimen for at least another 24 hours. He is usually not on oxygen. As such I need to change him from observation status to inpatient status. I will continue IV steroids, nebulizers, Lasix. (2) COPD (chronic obstructive pulmonary disease) Conclusion/Plan: He rarely uses a short acting bronchodilator at home. And he takes fluticasone with umeclidinium and vilanterol on a regular basis. Chest x-ray is without infiltrate. White cell count is slightly elevated. Viral panel negative for the flu, rhinovirus, coronavirus. Treated as exacerbation with DuoNeb on a regular schedule, albuterol as needed, Perforomist twice daily, budesonide twice daily, and oxygen to maintain O2 sats at 92%. Lung exam has improved. He has better air movement. No wheezing. Less tachypnea at rest. But still short of breath with exertion (just not at rest). Still with rhonchi. Plan: Change from observation status to inpatient status and keep him 1 more day. Hopefully can go home tomorrow.. Qualifiers: COPD type: COPD with acute exacerbation Qualified Code(s): J44.1 - Chronic obstructive pulmonary disease with (acute) exacerbation (3) Cor pulmonale Conclusion/Plan: EchoCardiogram confirms rising RVSP pressures. I would think that with his acute exacerbation of COPD, his RSVP would also rise acutely. That would cause cor pulmonale. That is being treated with Lasix. On exam his leg edema has completely resolved today. (4) BPH loc w urin obs/LUTS Conclusion/Plan: resume home dose of flomax. Place pierson at his request. I warned he and of risk of UTI. asks if I could have our local Urologist, Dr. Oconnor, see him. I will ask for consult but there is no inpatient requirement for now and warned he may not be seen. (5) Myelopathy of cervical spine Conclusion/Plan: He gives symptoms of decreasing strength in his arms, arm pain, hand numbness and pain. He is lost functionally to the point that he cannot use his hands to dress himself. Cannot use his hands to feed himself. He has worsening urinary incontinence. While he is always had prostate problems the urinary incontinence was not a problem until now. MRI done in September for this shows moderate to severe bilateral neuroforaminal narrowing from C2 down to C6. At C4-5 he has mild central canal narrowing seen with mild mass effect upon the ventral spinal cord. He has had NCV at [facility] and was seen by Dr. Anibal Busby at [facility] He is lost so much ground in the last 3 months that it is frightening her. And making him lose hope. Dr. Busby felt this was all carpal tunnel I have called Neurosurgery director of loss prevention at [facility], Dr. Feliciano Peguero, @ [phone] and I have had the MRI pushed to [facility]. I have also called Dr. Busby to discuss the case. Will also have PT and OT see him (6) Anemia Conclusion/Plan: He and his state that he is always had a little bit of anemia but has gotten worse over the last few months. No review of systems positive for GI bleed. As far as they know he does not have a B12 deficiency. His thyroid is normal. Been referred for an EGD and colonoscopy. However that surgeon did [id number] at that point in time because the patient had bilateral carotid stenosis, COPD, and wanted a better preop evaluation of how he could safely undergo an EGD and colonoscopy. Patient is still awaiting to hear where he is g oing to go. I will resume his outpatient multivitamin, folic acid, and iron . I will also order IV iron x 1 dose. Qualifiers: Anemia type: unspecified type Qualified Code(s): D64.9 - Anemia, unspecified (7) Do not resuscitate status Conclusion/Plan: He states that he has advanced directives, DURABLE POWER OF [employer] P[employer] paperwork. I see that all in our legal section in the electronic medical record. He does wish to be DO NOT RESUSCITATE. I asked his if she feels comfortable having him sign a POLST form. She says that she wants to give him the dignity to make his own decisions is much as possible. She supports his decision to be DNR and she would let him sign DNR and she agrees that that is what he would have wanted even without memory loss. Today with both of them together, they are in agreement for the DNR and POLST. He would sign but he can't because his hands don't work so she signed for him. Copy kept for our EMR and original sent home with her. (6) Anemia Qualifiers: Anemia type: unspecified type Qualified Code(s): D64.9 - Anemia, unspecified
[2023-11-17] MEDS: SODIUM CHLORIDE 0.9% 500 ML IV ONE (18:17)
[2023-11-18] MEDS: ZOLPIDEM 5 MG TABLET PO PRN (00:04)
[2023-11-18 05:29] LABS: BASOPHILS % (AUTO) 0.1 %; EOSINOPHILS % (AUTO) 0.1 %; HCT - HEMATOCRIT 29.9 % (42.0-52.0); LYMPHOCYTES # (AUTO) 0.6 10^3/uL (1.5-3.5); LYMPHOCYTES % (AUTO) 4.6 %; MEAN CORPUSCULAR HEMOGLOBIN 34.4 pg (27.0-31.0); MEAN CORPUSCULAR HGB CONC 33.4 g/dL (32.0-36.0); MEAN CORPUSCULAR VOLUME 102.7 fL (80.0-94.0); MONOCYTES # (AUTO) 1.2 10^3/uL (0.0-1.0); MONOCYTES % (AUTO) 8.8 %; NEUTROPHILS # (AUTO) 11.3 10^3/uL (1.5-6.6); NEUTROPHILS % (AUTO) 85.4 %; PLT - PLATELET COUNT 277 10^3/uL (130-450); RED BLOOD COUNT 2.91 10^6/uL (4.70-6.10); RED CELL DISTRIBUTION WIDTH 13.2 % (12.0-15.0); WHITE BLOOD COUNT 13.3 x10^3/uL (4.8-10.8)
[2023-11-18 06:05] LABS: CALCIUM 9.4 mg/dL (8.5-10.3); POTASSIUM 4.6 mmol/L (3.5-4.5)
--- NOTE | 2023-11-18 12:02 | Discharge Plan ---
Discharge Plan Problem Reviewed?: Yes Disposition: Home Health Service Condition: Stable Diet: Regular Activity Restrictions: Activity as Tolerated Assistance Devices: Walker Follow-Up Care: Home Health - RN, Home Health - PT, Home Health - OT No Smoking: If you smoke, Please STOP! Call for help. Follow-up with: Alma Silva ARNP [Provider Admit Priv/Credential] -
--- NOTE | 2023-11-18 12:06 | DISCHARGE SUMMARY ---
Discharge Summary Admit Date: 11/16/23 Discharge Date: 11/18/23 Discharging Provider: Miladis Olsen Primary Care Provider: Alma Silva Code Status: Do Not Attempt Resuscitation Condition at Discharge: Good Discharge Disposition: [facility] History of Present Illness: This is an 88-year-old white male who has a [id number] history and quit smoking in 2021, not on oxygen, and has chronic shortness of breath due to both his lung disease and heart disease with a history of CABG x 5 in 1991. He takes ProAir as needed but has not used it in a few years. 2 to 3 weeks ago he and his noted that he is being getting more short of breath with activity. He is starting to feel more tired and does not want to get up and do things. He is now short of breath when he lays down. And then the last few days he is short of breath with trying to get to the bathroom. He has chronic leg edema but that also seems to be worse. He is followed by Dr. Brandt from [facility] cardiology and he has documented coronary artery disease with a ZAYAS graft to the LAD, SVG to diagonal, SVG to ramus, SVG to obtuse marginal branch to an SVG to the PDA in 1991. In 1991 his ejection fraction was 35%. He had a follow-up angiogram in 2007 and he was told that he had the same blockages and that his bypass grafts were open. He then saw Dr. Brandt in follow-up in November 2012. He had follow-up echocardiograms in 2017 and 2021. The 2018 ejection fraction was 55 to 60%. His right ventricle was normal in size was normal. His RVSP at rest was 39 mmHg. He had mild to moderate mitral regurgitation. He then had a June 2022 echo and ejection fraction is still maintained at 55 to 60%. He now has right ventricular enlargement that is mild, systolic function and normal, but his RVSP has gone up to 57 mmHg. No significant valvular heart disease. He does have marked left atrial enlargement. He has permanent atrial fibrillation. He was started on Lasix when that echo came back. But the Lasix caused excessive urination and he st opped it. 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 At that time he did not have any orthopnea or PND with a follow-up in July 2023. To his knowledge he has never been seen by biomass plant manager. He does not know of any pulmonary function study volumes. The patient tells me that his has gone back home. But he was able to give me a review of systems that was cogent and lucid. When he came to certain details he said that I would have to ask his . When I ask him what he thinks is wrong with him he tells me that he really just thinks it is his lungs. They just feels so congested and he keeps on wanting to bring up phlegm. He has received Lasix and he is irritated about it. He just has to urinate so much. Is able to speak to his as well. I had her on the phone. And spoke to him at the same time. We both agreed that he was frail but compensating well. He was still able to pay bills, cook some meals. Then the week before and 's he developed right arm pain. Then it went to the left arm pain. His hands were getting numb. He had a C-spine CT scan in October which does not show severe cord compression. Just osteoarthritis. He then has been referred to orthopedics to get nerve conduction studies and be evaluated for carpal tunnel. All of this is taking so long. He feels like he is getting weaker. More short of breath. 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 Was given exercises to do back then and has never followed up on them. He finds that he is choking more and more and his voice is getting more and more hoarse. He is fallen twice now. Losing his balance and really hurting himself so Eliquis has been discontinued. He feels like the quality of his life is deteriorated substantially since the beginning of this year. He is tired of all this. He is not suicidal. He does want to kill himself. But he started feeling sick, tired of feeling tired, and more than anything else just exasperated by the entire medical system taking so long to figure out what is wrong with him. He would like a Abrams catheter. Because accompanying all of this is worsening lower urinary tract symptoms of retention from his prostate. He sees a urologist and was given tamsulosin. Dose increased. For a long time and help. But again, since August, that is gotten worse. He is tired of the in dignity of having urinary incontinence. Wearing a diaper. And he asked if we could please give him a Abrams catheter - HOSPITAL COURSE Hospital Course: Patient is an 88-year-old male who presented to the ED due to complaints of progressively worsening shortness of breath and fatigue. Chest x-ray was performed which revealed L small left-sided pleural effusion with suspicion for CHF. Patient was admitted as he was hypoxic requiring 2 L of oxygen. patient was started on IV steroids, nebulizers, and Lasix. His symptoms improved however he remained on 1 to 1.5 L of oxygen. He was subsequently discharged home on oxygen therapy to follow-up with his PCP. He was eval by PT/OT prior and was given home health services. Palliative care was also consulted and met with the patient. They will follow- up with him outpatient. There was some concern regarding his decrease in functional status and is pronounced bilateral upper extremity numbness and motor difficulty. An attempt was made to reach out to neurosurgery in [place] in regards to review of his MRI however no calls were returned. Patient would benefit from an outpatient neurosurgery referral given findings on his September 2023 MRI. Patient was sent home with a Abrams catheter due to acute urinary retention. He will follow-up with his urologist regarding this.. No medication changes were made - ALLERGIES Allergies/Adverse Reactions: Allergies Allergy/AdvReac Type Severity Reaction Status Date / Time cephalexin [From Keflex] AdvReac Unknown Verified 11/16/23 10:24 - MEDICATIONS Home Medications: Ambulatory Orders Medication Instructions Recorded Confirmed Atorvastatin Calcium 40 mg PO DAILY 08/06/17 11/16/23 atenoloL [Atenolol] 25 mg PO DAILY 08/06/17 11/16/23 Fluticasone/Umeclidin/Vilanter 1 inh PO DAILY 09/20/23 11/16/23 [Trelegy Ellipta 200-62.5-25] Tamsulosin [Flomax] 0.4 mg PO HS 09/20/23 11/16/23 Acetaminophen/Diphenhydramine [Cvs 2 each PO QPM PRN 11/16/23 11/16/23 Acetaminophen Pm Caplet] Aspirin Chewable [[facility] Riley 81 mg PO BID 11/16/23 11/16/23 Aspirin] Cyanocobalamin [Vitamin B-12] 500 mcg PO DAILY 11/16/23 11/16/23 Ferrous Gluconate [Fergon] 324 mg PO DAILY 11/16/23 11/16/23 Folic Acid 1 mg PO DAILY 11/16/23 11/16/23 Isosorbide Dinitrate [Isordil] 10 mg PO BID 11/16/23 11/16/23 Multivitamin [Theragran] 1 each PO DAILY 11/16/23 11/16/23 Pregabalin [Lyrica] 25 mg PO BID 11/16/23 11/16/23 - PHYSICAL EXAM AT DISCHARGE General Appearance: positive: Alert Respiratory: positive: Chest non-tender, No respiratory distress, Breath sounds nml Cardiovascular: positive: Regular rate & rhythm, No murmur, No gallop Abdomen: positive: Non-tender, No organomegaly, Nml bowel sounds - LABS Result Diagrams: 11/18/23 05:20 11/18/23 05:20 - SEPSIS Current Stage of Sepsis: Ruled out - FOLLOW UP Follow Up: Patient to follow-up with Amla Silva. He would also benefit from an outpatient referral to neurosurgery regarding his cervical spine. - TIME SPENT Time Spent in Discharge (Minutes): 30
--- NOTE | 2023-11-18 12:13 | Discharge Plan ---
Discharge Plan Disposition: 06 Home Health Service Condition: Good Activity Restrictions: Activity as Tolerated No Smoking: If you smoke, Please STOP! Call for help. Follow-up with: Alma Silva ARNP [Provider Admit Priv/Credential] -
[2023-11-18 12:39] VITALS: BP 120/55; O2SAT 92
--- NOTE | 2023-11-19 07:41 | CONSULTATION NOTE ---
Palliative Care Consultation - Referral Referring Provider: Arsen Stoll Time of Visit: 10:15 AM Referral setting: Hospitalized patient Referral Reason: Respiratory failure, CHF, multiple comorbidites with poor prognosis - Information Sources Records reviewed: Previous records reviewed History/Review of Systems obtained from: Patient, Family ( Margarita) Exam limitations: No limitations - History of Present Illness Brief History of Present Illness: This is an 88-year-old frail elderly man who is currently admitted for SOB, cough, and congestion. Margarita is present today. He has known coronary artery disease and COPD with a history of CABG x 5 in 1991. Charles has a substantial smoking history of 75 years and quit in 2021. He is currently on O2 2 L nasal cannula 24/02. He does not have this at home. He states as long as he is not doing anything, breathing is fine. He is SOB on exertion, but denies SOB when still. He had fluid overload in BLE and was given Lasix IV which caused a lot of urination. This made him upset. Now he has a Abrams catheter due to urine retention. Charles has ongoing dysphagia with known epiglottis problem, so now this is worse. Diet has been downgraded to pured. His quality of life has been declining since of this year. He's had 2 major falls since then. New onset of fingers going numb and tingling. He is unable to hold onto things, cannot sign his own name, and lost strength in his hands. He recently saw an orthopedist at [facility] who believes this is carpal tunnel syndrome. They have not heard back from the doctor since then. They are frustrated with waiting for answers. He does has known arthritis in the spine and Margarita is wondering if he needs to have further evaluation. They have not seen neurology as far she knows. She states Charles has an upcoming wellness exam with Alma Silva NP, and will ask her about this. He will need F/U with urology, hematology in January for anemia, and GI for ongoing dysphagia. 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 Brandt, at [facility] cardiology in [place]. Margarita states Charles wants to be more comfortable and he does not want to be a burden to her. It has been difficulty for both of them to watch his decline and not be able to do anything about it. Medical/Surgical History - Past Medical History Cardiovascular: reports: Hypertension, High cholesterol, Coronary artery disease, Peripheral Vascular Disease, [place] (1991), Atrial fibrillation, Murmur, Other (Secondary hypercoagulable state) Respiratory: reports: COPD ( daily. No rescue inhaler.), Emphysema, Shortness of breath Neuro: Dementia (Some cognitive impairment), Tremors Endocrine/Autoimmune: reports: None, HyPOthyroidism GI: reports: None : reports: Benign prostate hypertrophy (with obstruction; seen by [facility]), Retention, Incontinence, Renal insuffiency (Chronic kidney disease stage III) HEENT: reports: Chronic vision loss, Macular degeneration, Other (Cataracts removed in the past) Psych: reports: None Musculoskeletal: reports: Osteoarthritis, Fatigue Derm: reports: None, Other (Senile purpura) MRSA Hx?: No Other Past Medical History: Anemia - Past Surgical History General: reports: Appendectomy Cardiovascular: reports: CABG HEENT: reports: Cataracts - Substance History Use: Uses substance without health or social issues: NONE Abuse: Recurrent use of substance despite neg consequences: NONE Dependence: Experiences withdrawal or developed tolerances: NONE Social History - Living Situation Living arrangement: At home Living Situation: With spouse/s.o. Support System: Daughter lives in [place] and son lives out of [facility]. Medications/Allergies - Medications Active Medication List: Atorvastatin Calcium 40 mg PO DAILY 08/06/17 atenoloL [Atenolol] 25 mg PO DAILY 08/06/17 Fluticasone/Umeclidin/Vilanter [Trelegy Ellipta 200-62.5-25] 1 inh PO DAILY 09/20/23 Tamsulosin [Flomax] 0.4 mg PO HS 09/20/23 Acetaminophen/Diphenhydramine [Cvs Acetaminophen Pm Caplet] 2 each PO QPM PRN 11/16/23 Aspirin Chewable [[facility] Riley Aspirin] 81 mg PO BID 11/16/23 Cyanocobalamin [Vitamin B-12] 500 mcg PO DAILY 11/16/23 Ferrous Gluconate [Fergon] 324 mg PO DAILY 11/16/23 Folic Acid 1 mg PO DAILY 11/16/23 Isosorbide Dinitrate [Isordil] 10 mg PO BID 11/16/23 Multivitamin [Theragran] 1 each PO DAILY 11/16/23 Pregabalin [Lyrica] 25 mg PO BID 11/16/23 - Allergies Allergies/Adverse Reactions: Allergies Allergy/AdvReac Type Severity Reaction Status Date / Time cephalexin [From Keflex] AdvReac Unknown Verified 11/16/23 10:24 Review of Systems - Constitutional Constitutional: reports: Malaise, Weakness, Poor appetite - Ears, Nose & Throat Ears, Nose & Throat: reports: Hearing loss, Other (States "lost taste buds") - Cardiovascular Cardiovascular: reports: Irregular heart rate, Edema, Exertional dyspnea - Respiratory Respiratory: reports: SOB with exertion - Gastrointestinal Gastrointestinal: reports: Poor appetite, Other (Dysphagia) - Genitourinary Genitourinary: reports: Incontinence - Musculoskeletal Musculoskeletal: reports: Back pain, Muscle weakness, Assistive devices (2WW) - Neurological Neurological: reports: General weakness, Other (Numbness Tingling in hands/fingers) - Psychiatric Psychiatric: reports: Depression ( requests medication for mood/sleep) - Endocrine Endocrine: reports: Hypothyroidism - Hematologic/Lymphatic Hematologic/Lymph: reports: Anemia, Bruising, Bleeding tendencies Physical Exam - Vital Signs Vital Signs: Vital Signs x48h Temp Pulse Resp BP Pulse Ox O2 Flow Rate 11/18/23 12:35 36.5 C 65 18 120/55 L 92 2 - Physical Exam General Appearance: positive: No acute distress Eyes Bilateral: positive: EOMI Neck: positive: No JVD Cardiovascular: positive: Irregularly irregular Respiratory: positive: Wheezes Abdomen: positive: Nml bowel sounds Skin: positive: Pallor, Bruising, Other (Senile purpura bilateral upper extremities; ecchymosis with bruising left side of face) Extremities: positive: Pedal edema Neurologic/Psychiatric: positive: Oriented x3, Depressed mood/affect, Flat affect Comments/Other: Small scrape on lower right occipital lobe from hitting back of head Palliative Care - POLST Patient has POLST: Yes POLST Status: DNR Pain: No pain, Location, Severity (Worst), Comment (Numbness and tingling Bilateral hands and fingers) Tiredness/Fatigue: Mild (1-3) Drowsiness/Sedation: None Nausea: None Anorexia: Moderate (4-6) (Poor appetite and dysphagia), Weight loss Dyspnea: Mild (1-3), Comment (Only with activity stated) Depression: Moderate (4-6) Anxiety: Comment (Unknown) Feelings of wellbeing/Perceived Quality of Life: Poor (Told Dr. Walker he was "tired of it all") Sleep: Sleeps poorly Constipation: No, Comment Performance Status: Uses a 2WW for ambulation. Does have some stairs at the home. 2 in the front and 6 in the back. Concerned about getting up and down those. - Palliative Care Discussion: I discussed what palliative care (PC) is and how we are the mediators between PCP, specialists, and how we can help improve the quality of life for people. PC looks at the whole person versus systems within the body. Margarita stated "we are not quite ready for respite yet." I think she is confusing PC with hospice. I stated we help people get the services they need and to hospice eventually. PC helps with symptom management, referrals for servcies, and community home visits versus going out to PCP or specialists office. This make 's it easier on the person being seen in their own home. Charles said multiple times he wants to make things easier on his . He wants her to have more support. He does not want to be such a strain as he has been. Margarita remarks he has always been the one to do everything "a complete gentleman," cook, finances, yardwork, etc., and did not bother her with things. It's been difficult for him to give up his independence and accept help from Margarita. Eventually, Margarita said she wants him to be comfortable and have more quality of life. I asked if they would continue to go to specialty appointments. Margarita would want Charles to go, but I didn't get the feeling Charles really wanted to go. "I'm stubborn" he stated. He will do what she wants him to do at this point. Margarita said they need to F/U with the orthopedist in [place], urology [place], and hematology. She said her grandson will come and stay with Charles when she goes to her [employer] group on Mondays and Fridays. This is the one thing that gives her some time to herself and would make her feel supported. She knows Charles does not like someone else to be there with him, but she does not feel comfortable leaving him by himself anymore. Charles said he would go along with this. Margarita asked if he could potentially be on medication to help with his mood and sleep. She said there is no elaine, but this might be something to help. Again, Charles stated "I just want to support her. I'd like to be able to walk to the mailbox once in a while, and feel normal again; whatever that is." When I asked him about potential back surgery or needing a feeding tube, he commented, "I don't mind a liquid diet. I'd consider it if it would help." I told them I am more than happy to come to their home and do visits if they are feeling overwhelmed with everything going on. They appreciated this suggestion, and are open to palliative care when they return home. Results - Lab Results Fish Bones: 11/18/23 05:20 11/18/23 05:20 Lab and Imaging Results: Lab Results x24hrs 11/18/23 11/18/23 11/18/23 Range/Units 05:20 05:20 05:20 WBC 13.3 H (4.8-10.8) x10^3/uL RBC 2.91 L (4.70-6.10) 10^6/uL Hgb 10.0 L (14.0-18.0) g/dL Hct 29.9 L (42.0-52.0) % MCV 102.7 H (80.0-94.0) fL MCH 34.4 H (27.0-31.0) pg MCHC 33.4 (32.0-36.0) g/dL RDW 13.2 (12.0-15.0) % Plt Count 277 (130-450) 10^3/uL MPV 10.0 (7.4-11.4) fL Neut # (Auto) 11.3 H (1.5-6.6) 10^3/uL Lymph # (Auto) 0.6 L (1.5-3.5) 10^3/uL Rapides # (Auto) 1.2 H (0.0-1.0) 10^3/uL Eos # (Auto) 0.0 (0.0-0.7) 10^3/uL Baso # (Auto) 0.0 (0.0-0.1) 10^3/uL Absolute Nucleated RBC 0.00 x10^3/uL Nucleated RBC % 0.0 /100WBC Sodium 126 L (135-145) mmol/L Potassium 4.6 H (3.5-4.5) mmol/L Chloride 91 L (101-111) mmol/L Carbon Dioxide 30 (21-32) mmol/L Anion Gap 5.0 L (6-13) BUN 26 H (6-20) mg/dL Creatinine 1.0 (0.6-1.3) mg/dL Estimated GFR (MDRD) 71 L (>89) Glucose 98 (74-104) mg/dL Calcium 9.4 (8.5-10.3) mg/dL B-Natriuretic Peptide 212 H (5-100) pg/mL Impression and Recommendations - Palliative Care Impression: Charles is a frail 88-year-old elderly man with ongoing decline due to acute on chronic respiratory failure, COPD, and new onset CHF. He has known cardiac problems for over 20 years now. 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 He also has cognitive deficits he and Margarita have been compensating for. He is aware his memory is declining and has already stopped driving since August 2023. They are planning to include their daughter and grandson more to help them around the home and when Margarita is not able to be there. Charles has multiple upcoming specialty appointments in the next couple months. I have encouraged them to seriousy think about what is important in their lives and if all of these are absolutely necessary. They already have DPOA paperwork filled out and Charles knows his POLST is DNR with selective measures. Palliative care will be available to follow him after he returns home. Recommendations/Counseling Done: 1. Chronic respiratory failure - send home on 24/7 oxygen for dyspnea related to CHF and COPD. Will eventually need morphine for air hunger and pain. 2. COPD - should be on routine DuoNebs and LABA routine, and short acting medications at home. No further workup needed. 3. Depression - would benefit from SSRI for depression such as sertraline. Start 25 mg daily. 4. Neuropathic pain - increase pregabalin if kidneys can tolerate due to CKD stage III. 5. Dementia - start donepezil 5 mg nightly for cognition deficits and neuropsychiatric symptoms. 6. Prognosis is poor overall due to significant comorbidities with ongoing functional and cognitive decline. Would discourage further specialty appointments such as hematolog or urology. Focus should be on quality and comfort and once they are home they may realize this more than in the hospital. 75 minutes spent counseling on palliative care education, disease progression, symptom management, and anticipatory guidance.
--- NOTE | 2023-11-19 07:43 | ED Physician Documentation ---
PD HPI DYSPNEA - Stated complaint Stated Complaint: SOA - Chief complaint Chief Complaint: General - History obtained from History obtained from: Patient, Family - History of Present Illness Timing - onset: How many days ago Timing - onset during: Light activity (to point of even within a given room, getting dyspnea.) Timing - duration: Days Timing - details: Gradual onset, Still present Inciting event(s): URI. No: Out of meds Improved by: No: BiPAP / CPAP Worsened by: Exertion, Laying flat Associated symptoms: Cough, Wheezing. No: Fever, Hemoptysis Similar symptoms before: Has not had sx before Review of Systems Constitutional: reports: Myalgias, Fatigue, Weight Loss ( states poor appetite for the past few weeks.). denies: Fever, Chills Nose: reports: Congestion. denies: Rhinorrhea / runny nose Throat: denies: Sore throat Respiratory: reports: Dyspnea, Cough, Wheezing GI: reports: Nausea, Constipation. denies: Abdominal Pain, Vomiting, Diarrhea Skin: denies: Rash PD PAST MEDICAL HISTORY - Past Medical History Cardiovascular: Hypertension, High cholesterol, Coronary artery disease, Peripheral Vascular Disease, [place] (1991), Atrial fibrillation, Murmur, Other (Secondary hypercoagulable state) Respiratory: COPD ( daily. No rescue inhaler.), Emphysema, Shortness of breath Neuro: Dementia (Some cognitive impairment), Tremors Endocrine/Autoimmune: None, HyPOthyroidism GI: None : Benign prostate hypertrophy (with obstruction; seen by [facility] [facility]), Retention, Incontinence, Renal insuffiency (Chronic kidney disease stage III) HEENT: Chronic vision loss, Macular degeneration, Other (Cataracts removed in the past) Psych: None Musculoskeletal: Osteoarthritis, Fatigue Derm: None, Other (Senile purpura) Other Past Medical History: COPD, BPH, renal insuffiency (CKD stage 3), macular degeneration - Past Surgical History Past Surgical History: Yes General: Appendectomy Cardiovascular: CABG HEENT: Cataracts - Present Medications Home Medications: Ambulatory Orders Medication Instructions Recorded Confirmed Atorvastatin Calcium 40 mg PO DAILY 08/06/17 11/16/23 atenoloL [Atenolol] 25 mg PO DAILY 08/06/17 11/16/23 Fluticasone/Umeclidin/Vilanter 1 inh PO DAILY 09/20/23 11/16/23 [Trelegy Ellipta 200-62.5-25] Tamsulosin [Flomax] 0.4 mg PO HS 09/20/23 11/16/23 Acetaminophen/Diphenhydramine [[facility] 2 each PO QPM PRN 11/16/23 11/16/23 Acetaminophen Pm Caplet] Aspirin Chewable [[facility] 81 mg PO BID 11/16/23 11/16/23 Aspirin] Cyanocobalamin [Vitamin B-12] 500 mcg PO DAILY 11/16/23 11/16/23 Ferrous Gluconate [Fergon] 324 mg PO DAILY 11/16/23 11/16/23 Folic Acid 1 mg PO DAILY 11/16/23 11/16/23 Isosorbide Dinitrate [Isordil] 10 mg PO BID 11/16/23 11/16/23 Multivitamin [Theragran] 1 each PO DAILY 11/16/23 11/16/23 Pregabalin [Lyrica] 25 mg PO BID 11/16/23 11/16/23 - Allergies Allergies/Adverse Reactions: Allergies Allergy/AdvReac Type Severity Reaction Status Date / Time cephalexin [From Keflex] AdvReac Unknown Verified 11/16/23 10:24 - Social History Does the pt smoke?: No Smoking Status: Never smoker - POLST Patient has POLST: Yes POLST Status: DNR PD ED PE NORMAL - Vitals Vital signs reviewed: Yes - General General: Alert and oriented X 3, No acute distress, Well developed/nourished - Neck Neck: Supple, no meningeal sign, No adenopathy - Cardiac Cardiac: RRR - Respiratory Respiratory: No respiratory distress. No: Clear bilaterally - Abdomen Abdomen: Soft, Non tender - Derm Derm: Normal color, Warm and dry - Extremities Extremities: No calf tenderness / cord, Other (edema noted bother lower legs and ankles up to the prxoimal tibnial area. ) Results - Vitals Vitals: Oxygen O2 Source Oxymizer - Labs Labs: Laboratory Tests 11/16/23 11/16/23 11/16/23 10:35 10:35 10:35 WBC 11.0 H RBC 3.09 L Hgb 10.8 L Hct 31.7 L MCV 102.6 H MCH 35.0 H MCHC 34.1 RDW 13.2 Plt Count 240 MPV 10.3 Neut # (Auto) 9.1 H Lymph # (Auto) 0.5 L Glynn # (Auto) 0.8 Eos # (Auto) 0.5 Baso # (Auto) 0.0 Absolute Nucleated RBC 0.00 Nucleated RBC % 0.0 Sodium 127 L Potassium 4.1 Chloride 90 L Carbon Dioxide 29 Anion Gap 8.0 BUN 18 Creatinine 0.8 Estimated GFR (MDRD) 91 Glucose 98 Calcium 9.5 Magnesium Total Bilirubin 0.8 AST 19 ALT 18 Alkaline Phosphatase 84 B-Natriuretic Peptide Total Protein 6.8 Albumin 3.2 Globulin 3.6 Albumin/Globulin Ratio 0.9 L Lipase 11 Total PSA Nasal Adenovirus (PCR) NOT DETECTED Nasal B. parapertussis DNA (PCR) NOT DETECTED Nasal Coronavir 229E PCR NOT DETECTED Nasal Coronavir HKU1 PCR NOT DETECTED Nasal Coronavir NL63 PCR NOT DETECTED Nasal Coronavir OC43 PCR NOT DETECTED Nasal Enterovir/Rhinovir PCR NOT DETECTED Nasal Influenza B PCR NOT DETECTED Nasal Influenza A PCR NOT DETECTED Nasal Parainfluen 1 PCR NOT DETECTED Nasal Parainfluen 2 PCR NOT DETECTED Nasal Parainfluen 3 PCR NOT DETECTED Nasal Parainfluen 4 PCR NOT DETECTED Nasal RSV (PCR) NOT DETECTED Nasal B.pertussis DNA PCR NOT DETECTED Nasal C.pneumoniae (PCR) NOT DETECTED Nixon Human Metapneumo PCR NOT DETECTED Nasal M.pneumoniae (PCR) NOT DETECTED Nasal SARS-CoV-2 (PCR) NOT DETECTED 11/16/23 11/16/23 11/16/23 10:35 10:35 10:35 WBC RBC Hgb Hct MCV MCH MCHC RDW Plt Count MPV Neut # (Auto) Lymph # (Auto) Glynn # (Auto) Eos # (Auto) Baso # (Auto) Absolute Nucleated RBC Nucleated RBC % Sodium Potassium Chloride Carbon Dioxide Anion Gap BUN Creatinine Estimated GFR (MDRD) Glucose Calcium Magnesium 1.5 L Total Bilirubin AST ALT Alkaline Phosphatase B-Natriuretic Peptide 269 H Total Protein Albumin Globulin Albumin/Globulin Ratio Lipase Total PSA 1.557 Nasal Adenovirus (PCR) Nasal B. parapertussis DNA (PCR) Nasal Coronavir 229E PCR Nasal Coronavir HKU1 PCR Nasal Coronavir NL63 PCR Nasal Coronavir OC43 PCR Nasal Enterovir/Rhinovir PCR Nasal Influenza B PCR Nasal Influenza A PCR Nasal Parainfluen 1 PCR Nasal Parainfluen 2 PCR Nasal Parainfluen 3 PCR Nasal Parainfluen 4 PCR Nasal RSV (PCR) Nasal B.pertussis DNA PCR Nasal C.pneumoniae (PCR) Nixon Human Metapneumo PCR Nasal M.pneumoniae (PCR) Nasal SARS-CoV-2 (PCR) 11/17/23 11/17/23 11/17/23 04:29 04:29 04:29 WBC 9.6 RBC 3.20 L Hgb 10.6 L Hct 32.6 L MCV 101.9 H MCH 33.1 H MCHC 32.5 RDW 13.1 Plt Count 265 MPV 10.9 Neut # (Auto) 8.9 H Lymph # (Auto) 0.3 L Glynn # (Auto) 0.3 Eos # (Auto) 0.0 Baso # (Auto) 0.0 Absolute Nucleated RBC 0.00 Nucleated RBC % 0.0 Sodium 126 L Potassium 4.4 Chloride 89 L Carbon Dioxide 29 Anion Gap 8.0 BUN 18 Creatinine 0.8 Estimated GFR (MDRD) 91 Glucose 126 H Calcium 9.5 Magnesium Total Bilirubin AST ALT Alkaline Phosphatase B-Natriuretic Peptide 469 H Total Protein Albumin Globulin Albumin/Globulin Ratio Lipase Total PSA Nasal Adenovirus (PCR) Nasal B. parapertussis DNA (PCR) Nasal Coronavir 229E PCR Nasal Coronavir HKU1 PCR Nasal Coronavir NL63 PCR Nasal Coronavir OC43 PCR Nasal Enterovir/Rhinovir PCR Nasal Influenza B PCR Nasal Influenza A PCR Nasal Parainfluen 1 PCR Nasal Parainfluen 2 PCR Nasal Parainfluen 3 PCR Nasal Parainfluen 4 PCR Nasal RSV (PCR) Nasal B.pertussis DNA PCR Nasal C.pneumoniae (PCR) Nixon Human Metapneumo PCR Nasal M.pneumoniae (PCR) Nasal SARS-CoV-2 (PCR) PD Medical Decision Making - ED course Complexity details: reviewed results (BNP fairly normal at 200s. CXR showing enlarged heart and vascular congestion vs interstitial pneumonitis, such as viral. Still concern for atypical infection, so consider abx. Defer to hospitalist. ), re-evaluated patient (Nebulizer treatment and IV steroids here), considered differential (Has COPD so exac of that. Can check for pneumonia and viral etiology. His symptoms have been long enough that viral testing could be negative and having the COPD exac/some level of pneumonitis be the main continuing aspect, with development of cor pulmonale. Other consider CHF/cardiomyopathy. ), d/w patient, d/w family (spouse who describes increasing dyspnea over 2-3 weeks, more the past several days, with general weakness, poor appetite, increasing dusty leg edema. Has wheezing and work of breathing. No chest pain.) Departure - Departure Disposition: ED Place in Observation Clinical Impression: Dyspnea, COPD (chronic obstructive pulmonary disease), Fluid retention in legs, Cor pulmonale, Hypoxia, Hyponatremia, Poor appetite Condition: Good Discharge Date/Time: 11/16/23 14:05
== END 2023-11-18 14:15 | disposition home health service (06) | DRG 189 ==
LOC: EDUNIT# → ED 10:09 → MS2 13:18 → OBSVTOIN 11-17 13:33
PROVIDERS: ADMIT Specialist; ATTEND Family Medicine
DX: J96.21 Acute and chronic respiratory failure with hypoxia (principal); I12.9 Hypertensive chronic kidney disease with stage 1 through stage 4 chronic kidney disease, or unspecified chronic kidney disease; I48.21 Permanent atrial fibrillation; I13.0 Hypertensive heart and chronic kidney disease with heart failure and stage 1 through stage 4 chronic kidney disease, or unspecified chronic kidney disease; E87.1 Hypo-osmolality and hyponatremia; R63.0 Anorexia; Z20.822 Contact with and (suspected) exposure to COVID-19; R00.0 Tachycardia, unspecified; J44.1 Chronic obstructive pulmonary disease with (acute) exacerbation; N13.8 Other obstructive and reflux uropathy; F03.93 Unspecified dementia, unspecified severity, with mood disturbance; I50.9 Heart failure, unspecified; G99.2 Myelopathy in diseases classified elsewhere; N40.1 Benign prostatic hyperplasia with lower urinary tract symptoms; R03.1 Nonspecific low blood-pressure reading; R33.8 Other retention of urine; R41.3 Other amnesia; N18.30 Chronic kidney disease, stage 3 unspecified; I25.10 Atherosclerotic heart disease of native coronary artery without angina pectoris; E78.00 Pure hypercholesterolemia, unspecified; R25.1 Tremor, unspecified; I27.81 Cor pulmonale (chronic); M54.12 Radiculopathy, cervical region; M48.02 Spinal stenosis, cervical region; D64.9 Anemia, unspecified; J43.9 Emphysema, unspecified; Z66 Do not resuscitate; Z79.82 Long term (current) use of aspirin; Z79.899 Other long term (current) drug therapy; Z87.891 Personal history of nicotine dependence; Z91.81 History of falling; Z95.1 Presence of aortocoronary bypass graft
CPT/HCPCS: 36415; 71045; 80048; 80053; 83690; 83735; 83880; 84153; 85025; 87633; 93005; 94640; 97161; 97166; A9270; J7626

== ENCOUNTER → 2023-11-18 | Outpatient (CLI) | payer MEDICARE, OTHER | LOC: PC 08:00 | PROVIDERS: ATTEND Nurse Practitioner Gerontology | DX: Z53.9 Procedure and treatment not carried out, unspecified reason (principal) ==

== ENCOUNTER 2023-11-28 08:00 | Outpatient (CLI) | payer MEDICARE, OTHER | END 2023-11-28 23:59 | disposition home or self-care (01) | LOC: PC 08:00 | PROVIDERS: ATTEND Nurse Practitioner Gerontology | DX: Z51.5 Encounter for palliative care (principal); R54 Age-related physical debility; J44.9 Chronic obstructive pulmonary disease, unspecified; Z99.81 Dependence on supplemental oxygen; R20.2 Paresthesia of skin; I48.91 Unspecified atrial fibrillation; I11.0 Hypertensive heart disease with heart failure; I50.9 Heart failure, unspecified; R06.09 Other forms of dyspnea; I25.10 Atherosclerotic heart disease of native coronary artery without angina pectoris; F32.A Depression, unspecified; M54.12 Radiculopathy, cervical region; D64.9 Anemia, unspecified; Z79.899 Other long term (current) drug therapy; R63.0 Anorexia; R13.10 Dysphagia, unspecified; R60.0 Localized edema; N40.1 Benign prostatic hyperplasia with lower urinary tract symptoms; N13.8 Other obstructive and reflux uropathy; R41.89 Other symptoms and signs involving cognitive functions and awareness; Z91.81 History of falling; Z71.89 Other specified counseling; Z96.0 Presence of urogenital implants; Z87.891 Personal history of nicotine dependence; Z74.09 Other reduced mobility; Z66 Do not resuscitate | CPT/HCPCS: 99345 ==